=== PATIENT | male | born 1965 | race Hispanic/Latino ===

== ENCOUNTER 2017-10-04 11:30 | Emergency (ER) | payer MEDICAID, MEDICARE, OTHER ==
[2017-10-04 12:39] LABS: Basophils % (Auto) 0.3 % (0.0-1.8); Eosinophils # (Auto) 0.1 K/mm3 (0.0-0.4); Eosinophils % (Auto) 1.3 % (0.0-4.3); Hematocrit 39.7 % (35.5-45.6); Hemoglobin 13.5 gm/dl (11.8-15.2); Lymphocytes # (Auto) 1.2 K/mm3 (1.2-5.4); Lymphocytes % (Auto) 14.9 % (13.4-35.0); Mean Corpuscular HGB Conc 34 % (32-34); Mean Corpuscular Hemoglobin 32 pg (28-32); Mean Corpuscular Volume 93 fl (84-94); Monocytes # (Auto) 0.7 K/mm3 (0.0-0.8); Monocytes % (Auto) 8.5 % (0.0-7.3); Platelet Count 298 K/mm3 (140-440); Red Blood Count 4.28 M/mm3 (3.65-5.03); Red Cell Distribution Width 13.3 % (13.2-15.2)
[2017-10-04 12:54] LABS: Alanine Aminotransferase 106 units/L (7-56); Albumin 4.1 g/dL (3.9-5); BUN/Creatinine Ratio 20; Blood Urea Nitrogen 14 mg/dL (9-20); Calcium 9.3 mg/dL (8.4-10.2); Hemolysis Index 2
--- NOTE | 2017-10-04 13:42 | Emergency Department Report ---
HPI - General Chief Complaint: Altered Mental Status Time Seen by Provider: 10/04/17 13:27 - HPI HPI: 52-year-old male presents to the emergency department via police department after family called 911 as the patient allegedly was seen walking around the neighborhood naked. The patient allegedly lives with his mother and father but they are not bedside and we have not been able to get in touch with them to verify any of the story. The patient is a poor historian and therefore I am unable to get any past medical or psychiatric history. Patient is currently confused and is AAo x 1-2. ED Past Medical Hx - Past Medical History Additional medical history: unable to obtain - Surgical History Additional Surgical History: unable to obtain - Social History Smoking Status: Current Every Day Smoker Substance Use Type: Other - Medications Home Medications: Home Medications Medication Instructions Recorded Confirmed Last Taken Type No Known Home Medications [No 10/04/17 10/04/17 Unknown History Reported Home Medications] ED Review of Systems ROS: Stated complaint: PSYCH EVAL Other details as noted in HPI Comment: Unobtainable due to pts medical conditions Physical Exam - Physical Exam Vital Signs: Vital Signs 10/04/17 11:39 Temperature 99.1 F Pulse Rate 80 Respiratory 18 Rate Blood Pressure 138/98 O2 Sat by Pulse 97 Oximetry Physical Exam: GENERAL: The patient is well-developed well-nourished. HENT: Normocephalic. Atraumatic. Patient has moist mucous membranes. EYES: Extraocular motions are intact. Pupils equal reactive to light bilaterally. NECK: Supple. Trachea is midline. CHEST/LUNGS: Clear to auscultation. There is no respiratory distress noted. HEART/CARDIOVASCULAR: Regular. There is no tachycardia. There is no murmur. ABDOMEN: Abdomen is soft, nontender. Patient has normal bowel sounds. There is no abdominal distention. SKIN: Skin is warm and dry. NEURO: Patient is sleeping but is arousable with verbal and tactile stimuli. Once awake the patient is AAO [address] but not time. He says that the year is 1984 and is unable to tell me who the president is. No facial asymmetry. No pronator drift. Withdraws from painful stimuli. MUSCULOSKELETAL: There is no tenderness or deformity. There is no evidence of acute injury. ED Course Vital Signs 10/04/17 11:39 Temperature 99.1 F Pulse Rate 80 Respiratory 18 Rate Blood Pressure 138/98 O2 Sat by Pulse 97 Oximetry ED Medical Decision Making - Lab Data Result diagrams: 10/04/17 12:21 10/04/17 12:21 - Radiology Data Radiology results: report reviewed CT HEAD WITHOUT CONTRAST: HISTORY: Altered mental status. TECHNIQUE: Sequential CT images without contrast. FINDINGS: Images obtained show bilateral prominence of the sulci and ventricles. There are no abnormal intra- or extra-axial blood or fluid collections. There are no focal masses or evidence of mass effect. The dumas white matter differentiation appears within normal limits. Regions of periventricular decreased attenuation are consistent with microangiopathic ischemic disease. The posterior fossa structures including the fourth ventricle, cerebellum, and brainstem appear normal. IMPRESSION: Evidence of atrophy and microangiopathic ischemic disease. No acute intracranial process noted. Transcribed By: TTR Dictated By: LEVAR SAEED JR, MD Electronically Authenticated By: LEVAR SAEED JR, MD Signed Date/Time: 10/04/17 1409 - Medical Decision Making CT of the head does not show any bleed, shift, mass or any acute process. Labs up and mostly unremarkable and do not show any etiology of the patient's symptoms. I eventually was able to speak with the patient's father who says that he has been acting irrationally. He has been destroying his father's home. He has been disturbing other residents of the house and the father says that he is not welcome back there and that he plans to evict him. An attempt was made for the psych pointing machine operator to do an assessment on the patient but the patient either was hard to arouse or was malingering at that time. I did reevaluate him just after I was told this and I was able to arouse him with tactile stimuli. There could be a psychiatric component but as of right now the patient has altered mental status my plan is for the patient to be admitted for further evaluation and treatment. The patient has been presented to the hospitalist, Dr. Alvarez for admission or disposition. - Differential Diagnosis psychosis, CVA, TIA, metabolic encephalopathy Critical Care Time: No Critical care attestation.: If time is entered above; I have spent that time in minutes in the direct care of this critically ill patient, excluding procedure time. ED Disposition Clinical Impression: Altered mental status Qualifiers: Altered mental status type: unspecified Qualified Code(s): R41.82 - Altered mental status, unspecified Disposition: DC-09 OP ADMIT IP TO THIS HOSP Is pt being admited?: Yes Condition: Stable Referrals: PRIMARY CARE,MD [Primary Care Provider] - 3-5 Days Time of Disposition: 20:11
--- NOTE | 2017-10-04 14:18 | Cat Scan Report ---
CT HEAD WITHOUT CONTRAST: HISTORY: Altered mental status. TECHNIQUE: Sequential CT images without contrast. FINDINGS: Images obtained show bilateral prominence of the sulci and ventricles. There are no abnormal intra- or extra-axial blood or fluid collections. There are no focal masses or evidence of mass effect. The dumas white matter differentiation appears within normal limits. Regions of periventricular decreased attenuation are consistent with microangiopathic ischemic disease. The posterior fossa structures including the fourth ventricle, cerebellum, and brainstem appear normal. IMPRESSION: Evidence of atrophy and microangiopathic ischemic disease. No acute intracranial process noted.
--- NOTE | 2017-10-04 18:03 | Event Note ---
Date: 10/04/17 Patient seen and evaluated Dementia Transaminitis Stable for discharge No ETOH Patient to get detox at [facility]
[2017-10-05 09:03] VITALS: BP 110/74
== END 2017-10-05 08:35 | disposition home or self-care (01) ==
LOC: ED 11:30
DX: R41.82 Altered mental status, unspecified (principal); F17.200 Nicotine dependence, unspecified, uncomplicated
CPT/HCPCS: 36415; 70450; 80053; 82140; 82962; 84443; 85025; 99285; G0480; 80320

== ENCOUNTER 2017-11-29 22:52 | Inpatient (IN) | payer OTHER ==
[~2017-11-29 22:52] MED LIST: KETALAR IV ONE
[2017-11-29] MEDS ORDERED: KETAMINE HCL IV ONE (23:06)
[2017-11-29] MEDS ORDERED: ZOFRAN IV ONE (23:20)
[2017-11-29] MEDS ORDERED: NACL 0.9% 1000 ML IV ONE (23:21)
[2017-11-29] MEDS ORDERED: ARTIFICIAL TEARS OPHTH OINT OU PRN (23:25)
[2017-11-29] MEDS ORDERED: VASELINE LIP THERAPY TP PRN (23:25)
--- NOTE | 2017-11-29 23:30 | Emergency Department Report ---
ED General Adult HPI - General Chief complaint: Altered Mental Status Stated complaint: POSSIBLE OD Time Seen by Provider: 11/29/17 23:21 Source: EMS (ems notes not available at time of chart dictation), RN notes reviewed Mode of arrival: Ambulatory Limitations: Altered Mental Status, Physical Limitation - History of Present Illness Initial comments: This is a 52-year-old male who is unknown to this provider who is brought to the hospital by EMS for possible narcotic overdose. Patient is found down at home, for uncertain duration of time, via uncertain mechanism with narcotic paraphernalia around him. EMS reported given 4 mg of Narcan without change in clinical response. Upon arrival to the ER, the patient is laying on his back, has been vomiting, not protecting his airway, and is saturating at 86, 87% on 2-3 L of nasal cannula. No additional history is available at this time. -: unknown Consistency: constant Improves with: none Worsens with: none Associated Symptoms: confusion, weakness - Related Data Home Medications Medication Instructions Recorded Confirmed Last Taken No Known Home Medications [No 10/04/17 10/04/17 Unknown Reported Home Medications] Allergies Allergy/AdvReac Type Severity Reaction Status Date / Time codeine Allergy Itching Verified 10/04/17 11:46 ED Review of Systems ROS: Stated complaint: POSSIBLE OD Other details as noted in HPI Comment: Unobtainable due to pts medical conditions ED Past Medical Hx - Past Medical History Additional medical history: unable to obtain - Surgical History Additional Surgical History: unable to obtain - Social History Smoking Status: Current Every Day Smoker Substance Use Type: Other - Medications Home Medications: Home Medications Medication Instructions Recorded Confirmed Last Taken Type No Known Home Medications [No 10/04/17 10/04/17 Unknown History Reported Home Medications] ED Physical Exam - General Limitations: Altered Mental Status, Physical Limitation General appearance: obtunded - Head Head exam: Present: atraumatic, normocephalic - Eye Eye exam: Present: normal appearance, PERRL - ENT ENT exam: Present: normal exam, mucous membranes moist, normal external ear exam , other (patient has copious oral secretions in the oropharynx noted prior to intubation) - Neck Neck exam: Present: normal inspection, full ROM. Absent: tenderness, meningismus - Respiratory Respiratory exam: Present: respiratory distress, rhonchi - Cardiovascular Cardiovascular Exam: Present: normal rhythm, tachycardia, normal heart sounds. Absent: systolic murmur, diastolic murmur, rubs, gallop - GI/Abdominal GI/Abdominal exam: Present: soft. Absent: distended, tenderness, rebound, rigid , pulsatile mass - Rectal Rectal exam: Present: normal inspection - exam: Present: normal inspection - Extremities Exam Extremities exam: Present: normal inspection. Absent: tenderness, pedal edema, joint swelling, calf tenderness - Back Exam Back exam: Present: normal inspection. Absent: CVA tenderness (R), CVA tenderness (L), paraspinal tenderness, vertebral tenderness - Neurological Exam Neurological exam: Present: altered - Psychiatric Psychiatric exam: Present: other (non verbal) - Skin Skin exam: Present: warm, dry, intact, normal color ED Course Vital Signs 11/29/17 11/29/17 23:07 23:25 Temperature 102 F H Pulse Rate 134 H 127 H Respiratory 18 Rate Blood Pressure 176/110 145/99 O2 Sat by Pulse 96 99 Oximetry - Reevaluation(s) Reevaluation #1: 11/30/17 01:[address] scan of the brain, cervical spine negative for acute disease - Intubation Time Out Performed: Yes Sedative: Ketamine Mg Given: 150 Paralytic: Rocuronium Mg Given: 100 Size: 3 ET Tube Size: 7.5 Tube Secured Depth (cm): 23 Tube Secured Location: teeth Tube Placement Confirmation: visualized tube passing t, equal breath sounds bilat, confirmation by capnometr Additional Comments: Patient placed on nasal cannula at 15 L/m. Head of bed is elevated to 45. Patient received bag valve mask ventilation with a peaked out at 5 cm of PEEP. He is induced with 150 mg of ketamine. Towel roll place underneath the shoulder blades to align ear to sternal notch. Direct laryngoscopy is performed, vocal cords visualized and tube was passed with one attempt with no difficulty. ED Medical Decision Making - Lab Data Result diagrams: 11/29/17 23:30 11/29/17 23:30 Vital Signs 11/29/17 11/29/17 23:07 23:25 Temperature 102 F H Pulse Rate 134 H 127 H Respiratory 18 Rate Blood Pressure 176/110 145/99 O2 Sat by Pulse 96 99 Oximetry Lab Results 11/29/17 11/29/17 11/29/17 Range/Units 23:30 23:30 23:30 WBC 7.9 (4.5-11.0) K/mm3 RBC 3.84 (3.65-5.03) M/mm3 Hgb 13.1 (11.8-15.2) gm/dl Hct 38.8 (35.5-45.6) % MCV 101 H (84-94) fl MCH 34 H (28-32) pg MCHC 34 (32-34) % RDW 18.1 H (13.2-15.2) % Plt Count 186 (140-440) K/mm3 Lymph % (Auto) 7.1 L (13.4-35.0) % [place] % (Auto) 5.0 (0.0-7.3) % Eos % (Auto) 0.1 (0.0-4.3) % Baso % (Auto) 0.1 (0.0-1.8) % Lymph # 0.6 L (1.2-5.4) K/mm3 [place] # 0.4 (0.0-0.8) K/mm3 Eos # 0.0 (0.0-0.4) K/mm3 Baso # 0.0 (0.0-0.1) K/mm3 Seg Neutrophils % 87.7 H (40.0-70.0) % Seg Neutrophils # 6.9 (1.8-7.7) K/mm3 APTT (24.2-36.6) Sec. Sodium (137-145) mmol/L Potassium (3.6-5.0) mmol/L Chloride (98-107) mmol/L Carbon Dioxide (22-30) mmol/L Anion Gap mmol/L BUN (9-20) mg/dL Creatinine (0.8-1.5) mg/dL Estimated GFR ml/min BUN/Creatinine Ratio % Glucose (75-100) mg/dL Lactic Acid 4.10 H* (0.7-2.0) mmol/L Calcium (8.4-10.2) mg/dL Total Bilirubin (0.1-1.2) mg/dL AST (5-40) units/L ALT (7-56) units/L Alkaline Phosphatase (35-129) units/L Total Creatine Kinase (55-170) units/L Troponin T (0.00-0.029) ng/mL Total Protein (6.3-8.2) g/dL Albumin (3.9-5) g/dL Albumin/Globulin Ratio % Salicylates (2.8-20.0) mg/dL Acetaminophen (10.0-30.0) ug/mL Blood Type A POSITIVE Antibody Screen Negative 11/29/17 11/29/17 11/29/17 Range/Units 23:30 23:30 23:30 WBC (4.5-11.0) K/mm3 RBC (3.65-5.03) M/mm3 Hgb (11.8-15.2) gm/dl Hct (35.5-45.6) % MCV (84-94) fl MCH (28-32) pg MCHC (32-34) % RDW (13.2-15.2) % Plt Count (140-440) K/mm3 Lymph % (Auto) (13.4-35.0) % [place] % (Auto) (0.0-7.3) % Eos % (Auto) (0.0-4.3) % Baso % (Auto) (0.0-1.8) % Lymph # (1.2-5.4) K/mm3 [place] # (0.0-0.8) K/mm3 Eos # (0.0-0.4) K/mm3 Baso # (0.0-0.1) K/mm3 Seg Neutrophils % (40.0-70.0) % Seg Neutrophils # (1.8-7.7) K/mm3 APTT 27.4 (24.2-36.6) Sec. Sodium 144 (137-145) mmol/L Potassium 4.1 (3.6-5.0) mmol/L Chloride 103.2 (98-107) mmol/L Carbon Dioxide 25 (22-30) mmol/L Anion Gap 20 mmol/L BUN 19 (9-20) mg/dL Creatinine 0.9 (0.8-1.5) mg/dL Estimated GFR > 60 ml/min BUN/Creatinine Ratio 21 % Glucose 242 H (75-100) mg/dL Lactic Acid (0.7-2.0) mmol/L Calcium 8.9 (8.4-10.2) mg/dL Total Bilirubin 1.10 (0.1-1.2) mg/dL AST 52 H (5-40) units/L ALT 64 H (7-56) units/L Alkaline Phosphatase 81 (35-129) units/L Total Creatine Kinase 99 (55-170) units/L Troponin T < 0.010 (0.00-0.029) ng/mL Total Protein 7.3 (6.3-8.2) g/dL Albumin 4.3 (3.9-5) g/dL Albumin/Globulin Ratio 1.4 % Salicylates (2.8-20.0) mg/dL Acetaminophen (10.0-30.0) ug/mL Blood Type Antibody Screen 11/29/17 11/29/17 Range/Units 23:30 23:30 WBC (4.5-11.0) K/mm3 RBC (3.65-5.03) M/mm3 Hgb (11.8-15.2) gm/dl Hct (35.5-45.6) % MCV (84-94) fl MCH (28-32) pg MCHC (32-34) % RDW (13.2-15.2) % Plt Count (140-440) K/mm3 Lymph % (Auto) (13.4-35.0) % [place] % (Auto) (0.0-7.3) % Eos % (Auto) (0.0-4.3) % Baso % (Auto) (0.0-1.8) % Lymph # (1.2-5.4) K/mm3 [place] # (0.0-0.8) K/mm3 Eos # (0.0-0.4) K/mm3 Baso # (0.0-0.1) K/mm3 Seg Neutrophils % (40.0-70.0) % Seg Neutrophils # (1.8-7.7) K/mm3 APTT (24.2-36.6) Sec. Sodium (137-145) mmol/L Potassium (3.6-5.0) mmol/L Chloride (98-107) mmol/L Carbon Dioxide (22-30) mmol/L Anion Gap mmol/L BUN (9-20) mg/dL Creatinine (0.8-1.5) mg/dL Estimated GFR ml/min BUN/Creatinine Ratio % Glucose (75-100) mg/dL Lactic Acid (0.7-2.0) mmol/L Calcium (8.4-10.2) mg/dL Total Bilirubin (0.1-1.2) mg/dL AST (5-40) units/L ALT (7-56) units/L Alkaline Phosphatase (35-129) units/L Total Creatine Kinase (55-170) units/L Troponin T (0.00-0.029) ng/mL Total Protein (6.3-8.2) g/dL Albumin (3.9-5) g/dL Albumin/Globulin Ratio % Salicylates < 0.3 L (2.8-20.0) mg/dL Acetaminophen < 5.0 L (10.0-30.0) ug/mL Blood Type Antibody Screen - Radiology Data Radiology results: report reviewed, image reviewed X-ray the chest is negative for acute disease. Left support devices in appropriate position - Medical Decision Making Differential diagnosis, including but not limited to: Overdose, suicidality, pneumonia, urinary tract infection, pneumonitis, aspiration, intracranial injury , cervical spine injury Assessment and plan: 52-year-old male with altered mental status, hypoxia, reported evidence of drug paraphernalia around him. He required mechanical intubation/ventilation. He'll be ventilated on a lung protective strategy. High suspicion for aspiration pneumonia versus pneumonitis. Meets systemic inflammatory response syndrome criteria empirically. Noncontrast CT scan of the brain is negative. EKG is pending. Serum toxicology studies unremarkable. Dr. Villa, the hospital physician accepted the patient to the medical service. Dr. Crowell of the critical care department following consultation given his intubation. Patient is placed on a 1013 given that we do not know if this was an intentional overdose or recreational overdose. The psychiatric team can follow in consultation. Critical Care Time: Yes Critical care time in (mins) excluding proc time.: 45 Critical care attestation.: If time is entered above; I have spent that time in minutes in the direct care of this critically ill patient, excluding procedure time. ED Disposition Clinical Impression: SIRS (systemic inflammatory response syndrome) Respiratory failure Qualifiers: Chronicity: unspecified Respiratory failure complication: unspecified whether with hypoxia or hypercapnia Qualified Code(s): J96.90 - Respiratory failure, unspecified, unspecified whether with hypoxia or hypercapnia Disposition: OP ADMIT IP TO THIS HOSP Is pt being admited?: Yes Does the pt Need Aspirin: No Condition: Critical Referrals: PRIMARY CARE, [Primary Care Provider] - 3-5 Days
[2017-11-29] MEDS ORDERED: FLAGYL 500 MG/100 ML 500 MG/100 ML BAG IV ONE (23:45)
[2017-11-29] MEDS ORDERED: fentaNYL DRIP Premix 2,000 MCG/100 ML BAG IV SCH (23:45)
[2017-11-29] MEDS ORDERED: NACL 0.9% 500 ML IV SCH (23:45)
--- NOTE | 2017-11-29 23:46 | XRay Report ---
FINAL REPORT PROCEDURE: XR CHEST 1V AP TECHNIQUE: Chest radiograph anteroposterior view. CPT 89824 HISTORY: ETT placement COMPARISON: No prior studies are available for comparison. FINDINGS: Heart: Normal. Mediastinum/Vessels: Normal. Lungs/Pleural space: Normal. Bony thorax: No acute osseous abnormality. Life support devices: The endotracheal tube ends 4 centimeters above the willian. IMPRESSION: There is no evidence of an acute cardiopulmonary process. The endotracheal tube ends 4 centimeters above the willian..
[2017-11-30 00:08] LABS: Basophils % (Auto) 0.1 % (0.0-1.8); Eosinophils % (Auto) 0.1 % (0.0-4.3); Hematocrit 38.8 % (35.5-45.6); Hemoglobin 13.1 gm/dl (11.8-15.2); Lymphocytes # (Auto) 0.6 K/mm3 (1.2-5.4); Lymphocytes % (Auto) 7.1 % (13.4-35.0); Mean Corpuscular HGB Conc 34 % (32-34); Mean Corpuscular Hemoglobin 34 pg (28-32); Mean Corpuscular Volume 101 fl (84-94); Monocytes # (Auto) 0.4 K/mm3 (0.0-0.8); Platelet Count 186 K/mm3 (140-440); Red Blood Count 3.84 M/mm3 (3.65-5.03); Red Cell Distribution Width 18.1 % (13.2-15.2)
[2017-11-30 00:23] LABS: Alanine Aminotransferase 64 units/L (7-56); Albumin 4.3 g/dL (3.9-5); BUN/Creatinine Ratio 21; Blood Urea Nitrogen 19 mg/dL (9-20); Calcium 8.9 mg/dL (8.4-10.2); Hemolysis Index 2
[2017-11-30] MEDS ORDERED: TYLENOL PR ONE (01:02)
--- NOTE | 2017-11-30 01:08 | Cat Scan Report ---
FINAL REPORT PROCEDURE: CT HEAD/BRAIN WO CON TECHNIQUE: Computerized tomography of the head was performed without contrast material. HISTORY: AMS COMPARISON: 08/01/2017 FINDINGS: Skull and scalp: Normal. Paranasal sinuses: Normal. Ventricles and subarachnoid spaces: Normal. Cerebrum: There is no acute intracranial hemorrhage, hematoma infarction midline displacement or mass. Atrophy and periventricular deep white matter changes are noted.. Cerebellum and brainstem: No evidence of hemorrhage, acute infarction or mass. Vasculature: Normal. Comments: None. IMPRESSION: There is no evidence of an acute intracranial process. Mild atrophy and periventricular deep white matter change.
--- NOTE | 2017-11-30 01:11 | Cat Scan Report ---
FINAL REPORT PROCEDURE: CT CERVICAL SPINE WO CON TECHNIQUE: Computerized tomography of the cervical spine was performed from the skull base to T1 without contrast material. HISTORY: AMS COMPARISON: No prior studies are available for comparison. FINDINGS: The alignment of the vertebral segments is normal. No acute fracture or dislocation of the cervical spine. The heights of the vertebral bodies are maintained. There is loss of disc space height at the C3-4, C4-5 C5-6 and C6-7 levels. Moderate spur formation off the vertebral bodies is identified from the C3 through the C7 vertebral levels. Slight facet hypertrophy is identified at the C 3 4, C4-5 and C5-6 levels. The spinal canal is adequate at all levels. There is an endotracheal tube identified in the prevertebral soft tissues. IMPRESSION: There is no evidence of an acute fracture or dislocation of the cervical spine. Mild cervical spondylosis and degenerative disc changes as described..
[2017-11-30 01:17] LABS: Bacteria,Urine 1+ /HPF (Negative); Bilirubin,Urine NEG (Negative); Blood,Urine NEG (Negative); Color,Urine Yellow (Yellow); Mucus,Urine FEW /HPF; Urobilinogen,Urine < 2.0 mg/dL (<2.0)
[2017-11-30 01:27] LABS: Amphetamine Screen,Urine PRESUMPTIVE NEGATIVE; Benzodiazepines Screen,Urine PRESUMPTIVE NEGATIVE; Cannabinoid Screen,Urine PRESUMPTIVE NEGATIVE; Cocaine Screen,Urine PRESUMPTIVE NEGATIVE; Methadone Screen,Urine PRESUMPTIVE NEGATIVE
[2017-11-30 01:50] LABS: Opiate Screen,Urine PRESUMPTIVE POSITIVE
[2017-11-30] MEDS ORDERED: ATIVAN PO PRN (02:27)
[2017-11-30] MEDS ORDERED: SODIUM CHLORIDE FLUSH SYRINGE 10 ML IV PRN (02:27)
[2017-11-30] MEDS ORDERED: D50W (25GM) Syringe IV PRN (02:27)
--- NOTE | 2017-11-30 02:49 | History and Physical Report ---
History of Present Illness Date of examination: 11/30/17 Chief complaint: Patient was found unresponsive at home by EMS with heroine and alcohol paraphernalia in the room History of present illness: 52-year-old white male with unknown medical history was brought in by EMS with above complaints He was apparently vomiting in the ED and he was promptly intubated to protect airway He was also found to be hypoxic with O2 saturations in the high 80s Patient is intubated and sedated There is no family member in the room History is unavailable Past History Past Medical History: No medical history (unknown,? History of dementia, psychiatric problems and ? Alcoholism) Medications and Allergies Allergies Allergy/AdvReac Type Severity Reaction Status Date / Time codeine Allergy Itching Verified 10/04/17 11:46 Home Medications Medication Instructions Recorded Confirmed Last Taken Type No Known Home Medications [No 10/04/17 10/04/17 Unknown History Reported Home Medications] Active Meds: Active Medications Dextrose (D50w (25gm) Syringe) 50 ml IV PRN PRN PRN Reason: Hypoglycemia Heparin Sodium (Porcine) (Heparin) 5,000 unit SUB-Q Q8HR DEVENDRA Hydrophilic Ointment (Vaseline Lip Therapy) 1 applic TP Q2HR PRN PRN Reason: Dry Lips Ampicillin Sodium/Sulbactam Sodium (Unasyn/Ns 3 Gm/100 Ml) 3 gm in 100 mls @ 100 mls/hr IV Q6HR DEVENDRA; Protocol Last Admin: 11/30/17 01:58 Dose: 100 mls/hr Fentanyl Citrate (Fentanyl Drip Premix) 2,000 mcg in 100 mls @ 3.629 mls/hr IV TITR DEVENDRA; Protocol Sodium Chloride (Nacl 0.9% 1000 Ml) 1,000 mls @ 75 mls/hr IV DIRECT DEVENDRA Lorazepam (Ativan) 4 mg IV Q4HR PRN PRN Reason: Agitation Lorazepam (Ativan) 2 mg PO Q1H PRN PRN Reason: CIWA-Ar 8-15 Morphine Sulfate (Morphine) 2 mg IV Q4H PRN PRN Reason: Pain, Moderate (4-6) Multi-Ingred Cream/Lotion/Oil/Oint (Artificial Tears Ophth Oint) 1 applic OU Q4HR PRN PRN Reason: Dry Eye(s) Sodium Chloride (Nacl 0.9% 500 Ml) 1 ml IV DIRECT DEVENDRA Sodium Chloride (Sodium Chloride Flush Syringe 10 Ml) 10 ml IV BID DEVENDRA Sodium Chloride (Sodium Chloride Flush Syringe 10 Ml) 10 ml IV PRN PRN PRN Reason: LINE FLUSH Review of Systems All systems: negative (unable to perform review of systems as the patient is sedated and intubated) Exam - Constitutional Vitals: Temp Pulse Resp BP Pulse Ox 102 F H 93 H 22 147/97 100 11/29/17 23:07 11/30/17 02:15 11/30/17 02:15 11/30/17 02:15 11/30/17 02:15 General appearance: Present: no acute distress, other (sedated and intubated, appears ill looking) - EENT Eyes: Present: PERRL - Neck Neck: Present: supple. Absent: masses or JVD - Respiratory Respiratory effort: normal Respiratory: bilateral: CTA, diminished, negative: rales, rhonchi - Cardiovascular Rhythm: regular Heart Sounds: Present: S1 & S2 - Extremities Extremities: No edema - Abdominal General gastrointestinal: Present: soft, non-tender, hepatomegaly, splenomegaly Male genitourinary: Present: deferred - Rectal Rectal Exam: deferred - Integumentary Integumentary: Present: clear - Neurologic Neurologic: other (unable to evaluate as the patient is sedated) Results - Labs CBC & Chem 7: 11/29/17 23:30 11/29/17 23:30 Labs: Abnormal lab results 11/29/17 11/29/17 11/29/17 Range/Units 23:30 23:30 23:30 MCV 101 H (84-94) fl MCH 34 H (28-32) pg RDW 18.1 H (13.2-15.2) % Lymph % (Auto) 7.1 L (13.4-35.0) % Lymph # 0.6 L (1.2-5.4) K/mm3 Seg Neutrophils % 87.7 H (40.0-70.0) % POC ABG pH (7.35-7.45) POC ABG pCO2 (35-45) POC ABG pO2 (80-105) Glucose 242 H (75-100) mg/dL Lactic Acid 4.10 H* (0.7-2.0) mmol/L AST 52 H (5-40) units/L ALT 64 H (7-56) units/L Urine WBC (Auto) (0.0-6.0) /HPF Salicylates (2.8-20.0) mg/dL Acetaminophen (10.0-30.0) ug/mL 11/29/17 11/29/17 11/29/17 Range/Units 23:30 23:30 Unknown MCV (84-94) fl MCH (28-32) pg RDW (13.2-15.2) % Lymph % (Auto) (13.4-35.0) % Lymph # (1.2-5.4) K/mm3 Seg Neutrophils % (40.0-70.0) % POC ABG pH (7.35-7.45) POC ABG pCO2 (35-45) POC ABG pO2 (80-105) Glucose (75-100) mg/dL Lactic Acid (0.7-2.0) mmol/L AST (5-40) units/L ALT (7-56) units/L Urine WBC (Auto) 37.0 H (0.0-6.0) /HPF Salicylates < 0.3 L (2.8-20.0) mg/dL Acetaminophen < 5.0 L (10.0-30.0) ug/mL 11/30/17 Range/Units 01:42 MCV (84-94) fl MCH (28-32) pg RDW (13.2-15.2) % Lymph % (Auto) (13.4-35.0) % Lymph # (1.2-5.4) K/mm3 Seg Neutrophils % (40.0-70.0) % POC ABG pH 7.176 L (7.35-7.45) POC ABG pCO2 79.9 H (35-45) POC ABG pO2 243 H (80-105) Glucose (75-100) mg/dL Lactic Acid (0.7-2.0) mmol/L AST (5-40) units/L ALT (7-56) units/L Urine WBC (Auto) (0.0-6.0) /HPF Salicylates (2.8-20.0) mg/dL Acetaminophen (10.0-30.0) ug/mL Assessment and Plan - Patient Problems (1) Acute hypercapnic respiratory failure Current Visit: Yes Status: Acute Plan to address problem: Patient is intubated Admit patient to ICU Pulmonary consult with Dr. Crowell Empiric antibiotic therapy as the patient is intubated ABG results reviewed (2) Hyperglycemia Current Visit: Yes Status: Acute Plan to address problem: Unclear if patient has history of diabetes However we will start the patient on insulin sliding scale coverage for now Check A1c (3) Urinary tract infection Current Visit: Yes Status: Acute Qualifiers: Urinary tract infection type: acute cystitis Hematuria presence: without hematuria Qualified Code(s): N30.00 - Acute cystitis without hematuria Plan to address problem: Urine analysis results reviewed Blood and urine cultures obtained Will empirically treat the patient with Levaquin as the patient is also intubated (4) Altered mental status Current Visit: Yes Status: Acute Qualifiers: Altered mental status type: somnolence Qualified Code(s): R40.0 - Somnolence Plan to address problem: Baseline mental status is not known Rule out metabolic versus toxic encephalopathy May need neuro and psych evaluation once patient is extubated (5) Fever Current Visit: Yes Status: Acute Qualifiers: Encounter type: initial encounter Plan to address problem: Patient was noted to have a temperature of 102 He has UTI Blood cultures and urine cultures were obtained Patient empirically started on Levaquin IV Await culture results Tylenol for fever as needed (6) Heroin overdose Current Visit: Yes Status: Acute Qualifiers: Encounter type: initial encounter Plan to address problem: Patient is intubated at this time We'll start the patient on CIWA protocol with lorazepam for protection against drug withdrawal Patient is on 1013 He needs to get into a psychiatric facility once he is medically stable
[2017-11-30] MEDS ORDERED: ZOFRAN ONE (03:26)
[2017-11-30] MEDS: HEPARIN SUB-Q SCH ×3 (06:51→22:34)
[2017-11-30] MEDS ORDERED: UNASYN/NS 3 GM/100 ML 3 GM/100 ML BAG IV SCH ×2 (08:00)
--- NOTE | 2017-11-30 08:14 | XRay Report ---
AP CHEST: HISTORY: Followup respiratory failure Compared to 11/29/17. The endotracheal tube and nasogastric tube are in adequate position. Mild bilateral perihilar pulmonary edema or less likely infiltrates have developed since yesterday's exam. No pleural effusion or pneumothorax. Heart size remains within normal limits. IMPRESSION: Mild bilateral pulmonary edema is suspected.
[2017-11-30] MEDS: LEVAQUIN 500MG/100ML 500 MG/100 ML BAG IV SCH (09:49)
[2017-11-30] MEDS: PEPCID IV SCH ×2 (09:49→22:34)
[2017-11-30] MEDS: SODIUM CHLORIDE FLUSH SYRINGE 10 ML IV SCH ×2 (09:50→22:36)
--- NOTE | 2017-11-30 11:10 | Consultation ---
History of Present Illness - Reason for Consult Consult date: 11/30/17 Reason for consult: Mental Health Evaluation Requesting physician: CIRILO BOBO - Chief Complaint Chief complaint: "The patient is intubated" - History of Present Psychiatric Illness 52-year-old male presenting to the ER for possible narcotic overdose. He was found was narcotic paraphernalia around him per the record. Today the patient is intubated. Per the staff, the patient maybe extubated later today. Medications and Allergies Allergies Allergy/AdvReac Type Severity Reaction Status Date / Time codeine Allergy Itching Verified 10/04/17 11:46 Home Medications Medication Instructions Recorded Confirmed Last Taken Type No Known Home Medications [No 10/04/17 10/04/17 Unknown History Reported Home Medications] Active Meds: Active Medications Dextrose (D50w (25gm) Syringe) 50 ml IV PRN PRN PRN Reason: Hypoglycemia Famotidine (Pepcid) 20 mg IV BID DEVENDRA Last Admin: 11/30/17 09:49 Dose: 20 mg Heparin Sodium (Porcine) (Heparin) 5,000 unit SUB-Q Q8HR DEVENDRA Last Admin: 11/30/17 06:51 Dose: 5,000 unit Hydrophilic Ointment (Vaseline Lip Therapy) 1 applic TP Q2HR PRN PRN Reason: Dry Lips Fentanyl Citrate (Fentanyl Drip Premix) 2,000 mcg in 100 mls @ 3.629 mls/hr IV TITR DEVENDRA; Protocol Last Admin: 11/30/17 05:20 Dose: 1 mcg/kg/hr, 3.629 mls/hr Sodium Chloride (Nacl 0.9% 1000 Ml) 1,000 mls @ 75 mls/hr IV DIRECT DEVENDRA Levofloxacin/Dextrose (Levaquin 500mg/100ml) 500 mg in 100 mls @ 100 mls/hr IV Q24HR DEVENDRA; Protocol Last Admin: 11/30/17 09:49 Dose: 100 mls/hr Lorazepam (Ativan) 4 mg IV Q4HR PRN PRN Reason: Agitation Lorazepam (Ativan) 2 mg PO Q1H PRN PRN Reason: CIWA-Ar 8-15 Morphine Sulfate (Morphine) 2 mg IV Q4H PRN PRN Reason: Pain, Moderate (4-6) Multi-Ingred Cream/Lotion/Oil/Oint (Artificial Tears Ophth Oint) 1 applic OU Q4HR PRN PRN Reason: Dry Eye(s) Sodium Chloride (Nacl 0.9% 500 Ml) 1 ml IV DIRECT DEVENDRA Sodium Chloride (Sodium Chloride Flush Syringe 10 Ml) 10 ml IV BID DEVENDRA Last Admin: 11/30/17 09:50 Dose: 10 ml Sodium Chloride (Sodium Chloride Flush Syringe 10 Ml) 10 ml IV PRN PRN PRN Reason: LINE FLUSH Past psychiatric history - Past Medical History Past Medical History: other (Unabel to obtain ) Past Surgical History: Other (Unable to obtain) - past Psychiatric treatment and history psychiatric treatment history: Unable to obtain a psy hx or a fam psy hx. - Social History Social history: other (Unable to obtain) Mental Status Exam - Vital signs Last Vital Signs Temp 98.8 F 11/30/17 08:00 Pulse 76 11/30/17 09:00 Resp 18 11/30/17 09:00 BP 105/70 11/30/17 09:00 Pulse Ox 97 11/30/17 09:00 - Exam Narrative exam: The MSE could not be completed because of the patient's condition. Results Result Diagrams: 11/29/17 23:30 11/29/17 23:30 Abnormal lab results 11/29/17 11/29/17 11/29/17 Range/Units 23:30 23:30 23:30 MCV 101 H (84-94) fl MCH 34 H (28-32) pg RDW 18.1 H (13.2-15.2) % Lymph % (Auto) 7.1 L (13.4-35.0) % Lymph # 0.6 L (1.2-5.4) K/mm3 Seg Neutrophils % 87.7 H (40.0-70.0) % POC ABG pH (7.35-7.45) POC ABG pCO2 (35-45) POC ABG pO2 (80-105) Glucose 242 H (75-100) mg/dL POC Glucose (70-105) Lactic Acid 4.10 H* (0.7-2.0) mmol/L AST 52 H (5-40) units/L ALT 64 H (7-56) units/L Urine WBC (Auto) (0.0-6.0) /HPF Salicylates (2.8-20.0) mg/dL Acetaminophen (10.0-30.0) ug/mL Hepatitis C Antibody (NonReactive) 11/29/17 11/29/17 11/29/17 Range/Units 23:30 23:30 Unknown MCV (84-94) fl MCH (28-32) pg RDW (13.2-15.2) % Lymph % (Auto) (13.4-35.0) % Lymph # (1.2-5.4) K/mm3 Seg Neutrophils % (40.0-70.0) % POC ABG pH (7.35-7.45) POC ABG pCO2 (35-45) POC ABG pO2 (80-105) Glucose (75-100) mg/dL POC Glucose (70-105) Lactic Acid (0.7-2.0) mmol/L AST (5-40) units/L ALT (7-56) units/L Urine WBC (Auto) 37.0 H (0.0-6.0) /HPF Salicylates < 0.3 L (2.8-20.0) mg/dL Acetaminophen < 5.0 L (10.0-30.0) ug/mL Hepatitis C Antibody (NonReactive) 11/30/17 11/30/17 11/30/17 Range/Units 01:42 03:37 06:13 MCV (84-94) fl MCH (28-32) pg RDW (13.2-15.2) % Lymph % (Auto) (13.4-35.0) % Lymph # (1.2-5.4) K/mm3 Seg Neutrophils % (40.0-70.0) % POC ABG pH 7.176 L 7.470 H (7.35-7.45) POC ABG pCO2 79.9 H 34.5 L (35-45) POC ABG pO2 243 H 132 H (80-105) Glucose (75-100) mg/dL POC Glucose (70-105) Lactic Acid (0.7-2.0) mmol/L AST (5-40) units/L ALT (7-56) units/L Urine WBC (Auto) (0.0-6.0) /HPF Salicylates (2.8-20.0) mg/dL Acetaminophen (10.0-30.0) ug/mL Hepatitis C Antibody Reactive A (NonReactive) 11/30/17 Range/Units 06:36 MCV (84-94) fl MCH (28-32) pg RDW (13.2-15.2) % Lymph % (Auto) (13.4-35.0) % Lymph # (1.2-5.4) K/mm3 Seg Neutrophils % (40.0-70.0) % POC ABG pH (7.35-7.45) POC ABG pCO2 (35-45) POC ABG pO2 (80-105) Glucose (75-100) mg/dL POC Glucose 113 H (70-105) Lactic Acid (0.7-2.0) mmol/L AST (5-40) units/L ALT (7-56) units/L Urine WBC (Auto) (0.0-6.0) /HPF Salicylates (2.8-20.0) mg/dL Acetaminophen (10.0-30.0) ug/mL Hepatitis C Antibody (NonReactive) All other labs normal. Assessment and Plan Assessment and plan: Impression: Possible overdose per the record. The patient is intubated. Recommendation/Plan: Continue 1013 and assess patient in 24 hours.
--- NOTE | 2017-11-30 11:34 | Consultation ---
History of Present Illness Consult date: 11/30/17 Requesting physician: CIRILO BOBO Reason for consult: hypoxemia History of present illness: 52 y/o male with concern for drug overdose, admitted via the ED and intubated in the ED secondary to inability to protect airway. At somepoint, patient was placed on sedation and is currently on Fentanyl continuous infusion at 1. No family is present and patient is not able to provide history. Past History Past Medical History: other (Unabel to obtain ) Past Surgical History: Other (Unable to obtain) Social history: other (Unable to obtain) Medications and Allergies Allergies Allergy/AdvReac Type Severity Reaction Status Date / Time codeine Allergy Itching Verified 10/04/17 11:46 Home Medications Medication Instructions Recorded Confirmed Last Taken Type No Known Home Medications [No 10/04/17 10/04/17 Unknown History Reported Home Medications] Active Meds: Active Medications Dextrose (D50w (25gm) Syringe) 50 ml IV PRN PRN PRN Reason: Hypoglycemia Famotidine (Pepcid) 20 mg IV BID DEVENDRA Last Admin: 11/30/17 09:49 Dose: 20 mg Heparin Sodium (Porcine) (Heparin) 5,000 unit SUB-Q Q8HR DEVENDRA Last Admin: 11/30/17 06:51 Dose: 5,000 unit Hydrophilic Ointment (Vaseline Lip Therapy) 1 applic TP Q2HR PRN PRN Reason: Dry Lips Fentanyl Citrate (Fentanyl Drip Premix) 2,000 mcg in 100 mls @ 3.629 mls/hr IV TITR DEVENDRA; Protocol Last Titration: 11/30/17 10:00 Dose: 0 mcg/kg/hr, 0 mls/hr Sodium Chloride (Nacl 0.9% 1000 Ml) 1,000 mls @ 75 mls/hr IV DIRECT DEVENDRA Levofloxacin/Dextrose (Levaquin 500mg/100ml) 500 mg in 100 mls @ 100 mls/hr IV Q24HR DEVENDRA; Protocol Last Admin: 11/30/17 09:49 Dose: 100 mls/hr Lorazepam (Ativan) 4 mg IV Q4HR PRN PRN Reason: Agitation Lorazepam (Ativan) 2 mg PO Q1H PRN PRN Reason: CIWA-Ar 8-15 Morphine Sulfate (Morphine) 2 mg IV Q4H PRN PRN Reason: Pain, Moderate (4-6) Multi-Ingred Cream/Lotion/Oil/Oint (Artificial Tears Ophth Oint) 1 applic OU Q4HR PRN PRN Reason: Dry Eye(s) Sodium Chloride (Nacl 0.9% 500 Ml) 1 ml IV DIRECT DEVENDRA Sodium Chloride (Sodium Chloride Flush Syringe 10 Ml) 10 ml IV BID DEVENDRA Last Admin: 11/30/17 09:50 Dose: 10 ml Sodium Chloride (Sodium Chloride Flush Syringe 10 Ml) 10 ml IV PRN PRN PRN Reason: LINE FLUSH Review of Systems ROS unobtainable: due to endotracheal tube, due to mental status Physical Examination Vital signs: Vital Signs Temp Pulse Resp BP Pulse Ox 102 F H 134 H 18 176/110 96 11/29/17 23:07 11/29/17 23:07 11/29/17 23:07 11/29/17 23:07 11/29/17 23:07 General appearance: comatose (secondary to medication) Eyes: non-icteric ENT: other (orally intubated and sedated) Neck: supple Ascultation: Bilateral: rales Cardiovascular: regular rate and rhythm Gastrointestinal: soft, non-tender Integumentary: other (multiple tattoos) Musculoskeletal: no deformities unable to assess Results - Laboratory Findings CBC and BMP: 11/29/17 23:30 11/29/17 23:30 ABG POC ABG pH 7.470 (7.35-7.45) H 11/30/17 06:13 POC ABG pCO2 34.5 (35-45) L 11/30/17 06:13 POC ABG pO2 132 (80-105) H 11/30/17 06:13 POC ABG HCO3 25.1 11/30/17 06:13 POC ABG Total CO2 26 11/30/17 06:13 POC ABG O2 Sat 99 11/30/17 06:13 Abnormal lab findings: Abnormal Labs 11/29/17 11/29/17 11/29/17 23:30 23:30 23:30 MCV 101 H MCH 34 H RDW 18.1 H Lymph % (Auto) 7.1 L Lymph # 0.6 L Seg Neutrophils % 87.7 H POC ABG pH POC ABG pCO2 POC ABG pO2 Glucose 242 H POC Glucose Lactic Acid 4.10 H* AST 52 H ALT 64 H Urine WBC (Auto) Salicylates Acetaminophen Hepatitis C Antibody 11/29/17 11/29/17 11/29/17 23:30 23:30 Unknown MCV MCH RDW Lymph % (Auto) Lymph # Seg Neutrophils % POC ABG pH POC ABG pCO2 POC ABG pO2 Glucose POC Glucose Lactic Acid AST ALT Urine WBC (Auto) 37.0 H Salicylates < 0.3 L Acetaminophen < 5.0 L Hepatitis C Antibody 11/30/17 11/30/17 11/30/17 01:42 03:37 06:13 MCV MCH RDW Lymph % (Auto) Lymph # Seg Neutrophils % POC ABG pH 7.176 L 7.470 H POC ABG pCO2 79.9 H 34.5 L POC ABG pO2 243 H 132 H Glucose POC Glucose Lactic Acid AST ALT Urine WBC (Auto) Salicylates Acetaminophen Hepatitis C Antibody Reactive A 11/30/17 06:36 MCV MCH RDW Lymph % (Auto) Lymph # Seg Neutrophils % POC ABG pH POC ABG pCO2 POC ABG pO2 Glucose POC Glucose 113 H Lactic Acid AST ALT Urine WBC (Auto) Salicylates Acetaminophen Hepatitis C Antibody - Diagnostic Findings Chest x-ray: image reviewed (questionable right lower lobe infiltrate vs edema, per rads bilateral edema) Assessment and Plan 52 y/o male with acute respiratory failure thought secondary to drug overdose. 1. Stop sedation 2. Per nursing, when off sedation, patient can be agitated and "wild". May not tolerate conventional weaning methods. If the case, will extubate as soon as patient is more alert. 3. Psych evaluation once extubated CCT 31 minutes.
[2017-11-30] MEDS: ATIVAN IV PRN ×3 (13:16→23:18)
[2017-11-30] MEDS ORDERED: ZEMURON IV ONE (14:44)
[2017-11-30] MEDS ORDERED: XYLOCAINE CARDIAC IV ONE (14:44)
[2017-11-30] MEDS ORDERED: AMIDATE IV ONE (14:44)
--- NOTE | 2017-11-30 15:10 | Event Note ---
Date: 11/30/17 52 year old male was admitted this morning for the management of drug overdose. Patient was not able to take care of his airways. He was intubated and mechanical ventilation. H&P, imaging, labs, consultants recommendation were reviewed. Continue current management. The high probability of a clinically significant, sudden or life threatening deterioration of the [respiratory, neurology] system(s) required my full and direct attention, intervention and personal management. The aggregate critical care time was [31] minutes. This time is in addition to time spent performing reported procedures but includes the following: [x] Data Review and interpretation [x] Patient assessment and monitoring of vital signs [x] Documentation [x] Medication orders and management
[2017-11-30] MEDS ORDERED: KETALAR IV ONE (22:50)
[2017-12-01] MEDS: ATIVAN IV PRN ×4 (01:18→06:36)
--- NOTE | 2017-12-01 03:47 | XRay Report ---
FINAL REPORT PROCEDURE: XR CHEST 1V AP TECHNIQUE: Chest radiograph anteroposterior view. CPT 97117 HISTORY: follow up respiratory failure COMPARISON: 11/29/2017 FINDINGS: Heart: Normal. Mediastinum/Vessels: Normal. Lungs/Pleural space: There are bilateral perihilar infiltrates greater on the right. There are no effusions or pneumothoraces.. Bony thorax: No acute osseous abnormality. Life support devices: The NG tube is in the stomach.. IMPRESSION: The heart size is normal.. There are bilateral perihilar infiltrates greater on the right. There are no effusions or pneumothoraces.. The NG tube is in the stomach..
[2017-12-01] MEDS: HEPARIN SUB-Q SCH ×3 (05:27→22:39)
[2017-12-01 05:29] LABS: BUN/Creatinine Ratio 30; Blood Urea Nitrogen 21 mg/dL (9-20); Calcium 8.6 mg/dL (8.4-10.2); Hemolysis Index 0
[2017-12-01] MEDS ORDERED: ATIVAN IV PRN (09:38)
[2017-12-01] MEDS: PEPCID IV SCH ×2 (10:06→22:39)
[2017-12-01] MEDS: LEVAQUIN 500MG/100ML 500 MG/100 ML BAG IV SCH (10:06)
[2017-12-01] MEDS: SODIUM CHLORIDE FLUSH SYRINGE 10 ML IV SCH ×2 (10:07→22:39)
[2017-12-01] MEDS ORDERED: HALDOL IV SCH (12:00)
--- NOTE | 2017-12-01 12:03 | Progress Note ---
Assessment and Plan 52 y/o male with acute respiratory failure thought secondary to drug overdose. 1. Stop CIWA 2. Placed on PRN Haldol IM 3. Psych following 4. Speech eval 5. Continue 1013 until otherwise noted by Psych CCT 31 minutes. Subjective Date of service: 12/01/17 Interval history: Successful extubation on yesterday. Mental state about the same. Placed on CIWA but was a suspected heroin overdose. Objective Vital Signs - 12hr 12/01/17 12/01/17 12/01/17 00:33 01:00 02:00 Temperature 98.6 F Pulse Rate 132 H 93 H Pulse Rate [ Right Dorsalis Pedis] Respiratory 15 13 Rate Blood Pressure 133/83 137/90 O2 Sat by Pulse 96 97 Oximetry 12/01/17 12/01/17 12/01/17 03:00 04:00 05:00 Temperature Pulse Rate 87 87 91 H Pulse Rate [ Right Dorsalis Pedis] Respiratory 12 11 L 14 Rate Blood Pressure 140/91 143/89 174/116 O2 Sat by Pulse 97 99 98 Oximetry 12/01/17 12/01/17 12/01/17 06:00 07:00 07:59 Temperature Pulse Rate 95 H 95 H Pulse Rate [ Right Dorsalis Pedis] Respiratory 15 17 Rate Blood Pressure 144/93 144/96 O2 Sat by Pulse 96 97 99 Oximetry 12/01/17 08:00 Temperature 98.5 F Pulse Rate 87 Pulse Rate [ 94 H Right Dorsalis Pedis] Respiratory 13 Rate Blood Pressure 144/96 O2 Sat by Pulse 99 Oximetry Constitutional: lethargic Eyes: non-icteric Neck: supple Ascultation: Bilateral: rales Cardiovascular: regular rate and rhythm Gastrointestinal: soft, non-tender Integumentary: other (multiple tattoos) Neurologic: unable to assess CBC and BMP: 11/29/17 23:30 12/01/17 04:02 ABG, PT/INR, D-dimer: ABG POC ABG pH 7.470 (7.35-7.45) H 11/30/17 06:13 POC ABG pCO2 34.5 (35-45) L 11/30/17 06:13 POC ABG pO2 132 (80-105) H 11/30/17 06:13 POC ABG HCO3 25.1 11/30/17 06:13 POC ABG Total CO2 26 11/30/17 06:13 POC ABG O2 Sat 99 11/30/17 06:13 Abnormal lab findings: Abnormal Labs 11/29/17 11/29/17 11/29/17 23:30 23:30 23:30 MCV 101 H MCH 34 H RDW 18.1 H Lymph % (Auto) 7.1 L Lymph # 0.6 L Seg Neutrophils % 87.7 H POC ABG pH POC ABG pCO2 POC ABG pO2 Sodium Chloride BUN Creatinine Glucose 242 H POC Glucose Lactic Acid 4.10 H* AST 52 H ALT 64 H Urine WBC (Auto) Salicylates Acetaminophen Hepatitis C Antibody 11/29/17 11/29/17 11/29/17 23:30 23:30 Unknown MCV MCH RDW Lymph % (Auto) Lymph # Seg Neutrophils % POC ABG pH POC ABG pCO2 POC ABG pO2 Sodium Chloride BUN Creatinine Glucose POC Glucose Lactic Acid AST ALT Urine WBC (Auto) 37.0 H Salicylates < 0.3 L Acetaminophen < 5.0 L Hepatitis C Antibody 11/30/17 11/30/17 11/30/17 01:42 03:37 06:13 MCV MCH RDW Lymph % (Auto) Lymph # Seg Neutrophils % POC ABG pH 7.176 L 7.470 H POC ABG pCO2 79.9 H 34.5 L POC ABG pO2 243 H 132 H Sodium Chloride BUN Creatinine Glucose POC Glucose Lactic Acid AST ALT Urine WBC (Auto) Salicylates Acetaminophen Hepatitis C Antibody Reactive A 11/30/17 11/30/17 12/01/17 06:36 14:28 04:02 MCV MCH RDW Lymph % (Auto) Lymph # Seg Neutrophils % POC ABG pH POC ABG pCO2 POC ABG pO2 Sodium 146 H Chloride 107.6 H BUN 21 H Creatinine 0.7 L Glucose POC Glucose 113 H 122 H Lactic Acid AST ALT Urine WBC (Auto) Salicylates Acetaminophen Hepatitis C Antibody
--- NOTE | 2017-12-01 12:32 | Progress Note ---
Subjective - Reason for Consult Consult date: 12/01/17 Reason for consult: Psychiatry Follow-up - Chief Complaint Chief complaint: "The patient was extubated yesterday" 52-year-old male presenting to the ER for possible narcotic overdose. He was found was narcotic paraphernalia around him per the record. Today the patient is drowsy. The patient was extubated yesterday. Per his assigned nurse, the patient was agitated so PRN Ativan was given. Mental Status Exam - Vital signs Last Vital Signs Temp 99.9 F H 12/01/17 12:00 Pulse 94 H 12/01/17 08:00 Resp 13 12/01/17 08:00 BP 144/96 12/01/17 08:00 Pulse Ox 99 12/01/17 08:00 - Exam Narrative exam: The MSE could not be completed because of the patient's condition. Assessment and Plan Impression: Possible overdose per the record. The patient is drowsy. He was given PRN Ativan prior to my arrival to his room. The patient is in restraints. Recommendation/Plan: Continue 1013, gather collateral information, and assess patient in 24 hours. Start Haldol 5 mg IM Q6hrs PRN for acute agitation.
[2017-12-01] MEDS: NACL 0.9% 1000 ML 1,000 ML IV SCH (14:12)
[2017-12-01] MEDS: HALDOL IM PRN ×2 (14:15→23:57)
--- NOTE | 2017-12-01 15:15 | Progress Note ---
Assessment and Plan Assessment and plan: 51-year-old male was admitted to ICU for the management of drug overdose. Patient was altered at presentation and couldn't protect his airways was intubated, mechanically ventilated. Patient was extubated on 11/30. Patient was on CIWA and currently d/denys and on haldol PRN. Patient was on emperic Iv antibiotics and currently off antibiotics. No fever, WBC within normal limit. Lactic acid level normalized. Toxic encephalopathy - Likely due to opioid overdose - Patient is agitated, currently on haldol - will monitor closely Psych evaluated and recommend continue 1013 DVT prophylaxis - Heparin History Interval history: Patient was seen and evaluated this morning, patient was given Ativan before I went to the room and he was sleepy. Hospitalist Physical - Physical exam Narrative exam: patient is on venturimask 5L of oxygen. Patient was drowsy The patient appeared well nourished and normally developed. Vital signs as documented. Head exam is unremarkable. No scleral icterus . Neck is without jugular venous distension, thyromegaly, or carotid bruits. Lungs are clear to auscultation. Cardiac exam reveals regular rate and Rhythm. First and second heart sounds normal. No murmurs, rubs or gallops. Abdominal exam reveals normal bowel sounds, no masses, no organomegaly and no aortic enlargement. Extremities are nonedematous and both femoral and pedal pulses are normal. 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 - Constitutional Vitals: Temp Pulse Resp BP Pulse Ox 99.9 F H 116 H 21 149/98 95 12/01/17 12:00 12/01/17 14:00 12/01/17 14:00 12/01/17 14:00 12/01/17 14:00 General appearance: Present: no acute distress, other (sedated and intubated, appears ill looking) Results - Labs CBC & Chem 7: 11/29/17 23:30 12/01/17 04:02 Labs: Laboratory Last Values WBC 7.9 K/mm3 (4.5-11.0) 11/29/17 23:30 RBC 3.84 M/mm3 (3.65-5.03) 11/29/17 23:30 Hgb 13.1 gm/dl (11.8-15.2) 11/29/17 23:30 Hct 38.8 % (35.5-45.6) 11/29/17 23:30 MCV 101 fl (84-94) H 11/29/17 23:30 MCH 34 pg (28-32) H 11/29/17 23:30 MCHC 34 % (32-34) 11/29/17 23:30 RDW 18.1 % (13.2-15.2) H 11/29/17 23:30 Plt Count 186 K/mm3 (140-440) 11/29/17 23:30 Lymph % (Auto) 7.1 % (13.4-35.0) L 11/29/17 23:30 [place] % (Auto) 5.0 % (0.0-7.3) 11/29/17 23:30 Eos % (Auto) 0.1 % (0.0-4.3) 11/29/17 23:30 Baso % (Auto) 0.1 % (0.0-1.8) 11/29/17 23:30 Lymph # 0.6 K/mm3 (1.2-5.4) L 11/29/17 23:30 [place] # 0.4 K/mm3 (0.0-0.8) 11/29/17 23:30 Eos # 0.0 K/mm3 (0.0-0.4) 11/29/17 23:30 Baso # 0.0 K/mm3 (0.0-0.1) 11/29/17 23:30 Seg Neutrophils % 87.7 % (40.0-70.0) H 11/29/17 23:30 Seg Neutrophils # 6.9 K/mm3 (1.8-7.7) 11/29/17 23:30 APTT 27.4 Sec. (24.2-36.6) 11/29/17 23:30 POC ABG pH 7.470 (7.35-7.45) H 11/30/17 06:13 POC ABG pCO2 34.5 (35-45) L 11/30/17 06:13 POC ABG pO2 132 (80-105) H 11/30/17 06:13 POC ABG HCO3 25.1 11/30/17 06:13 POC ABG Total CO2 26 11/30/17 06:13 POC ABG O2 Sat 99 11/30/17 06:13 POC ABG Base Excess 1 11/30/17 06:13 FiO2 75 % 11/30/17 06:13 Sodium 146 mmol/L (137-145) H 12/01/17 04:02 Potassium 3.7 mmol/L (3.6-5.0) 12/01/17 04:02 Chloride 107.6 mmol/L (98-107) H 12/01/17 04:02 Carbon Dioxide 25 mmol/L (22-30) 12/01/17 04:02 Anion Gap 17 mmol/L 12/01/17 04:02 BUN 21 mg/dL (9-20) H 12/01/17 04:02 Creatinine 0.7 mg/dL (0.8-1.5) L 12/01/17 04:02 Estimated GFR > 60 ml/min 12/01/17 04:02 BUN/Creatinine Ratio 30 % 12/01/17 04:02 Glucose 85 mg/dL (75-100) 12/01/17 04:02 POC Glucose 81 (70-105) 12/01/17 10:21 Lactic Acid 1.30 mmol/L (0.7-2.0) 11/30/17 03:37 Calcium 8.6 mg/dL (8.4-10.2) 12/01/17 04:02 Total Bilirubin 1.10 mg/dL (0.1-1.2) 11/29/17 23:30 AST 52 units/L (5-40) H 11/29/17 23:30 ALT 64 units/L (7-56) H 11/29/17 23:30 Alkaline Phosphatase 81 units/L (35-129) 11/29/17 23:30 Total Creatine Kinase 99 units/L (55-170) 11/29/17 23:30 Troponin T < 0.010 ng/mL (0.00-0.029) 11/29/17 23:30 Total Protein 7.3 g/dL (6.3-8.2) 11/29/17 23:30 Albumin 4.3 g/dL (3.9-5) 11/29/17 23:30 Albumin/Globulin Ratio 1.4 % 11/29/17 23:30 Urine Color Yellow (Yellow) 11/29/17 Unknown Urine Turbidity Clear (Clear) 11/29/17 Unknown Urine pH 5.0 (5.0-7.0) 11/29/17 Unknown Ur Specific [place] 1.014 (1.003-1.030) 11/29/17 Unknown Urine Protein 100 mg/dl mg/dL (Negative) 11/29/17 Unknown Urine Glucose (UA) >=500 mg/dL (Negative) 11/29/17 Unknown Urine Ketones Neg mg/dL (Negative) 11/29/17 Unknown Urine Blood Neg (Negative) 11/29/17 Unknown Urine Nitrite Neg (Negative) 11/29/17 Unknown Urine Bilirubin Neg (Negative) 11/29/17 Unknown Urine Urobilinogen < 2.0 mg/dL (<2.0) 11/29/17 Unknown Ur Leukocyte Esterase Neg (Negative) 11/29/17 Unknown Urine WBC (Auto) 37.0 /HPF (0.0-6.0) H 11/29/17 Unknown Urine RBC (Auto) 6.0 /HPF (0.0-6.0) 11/29/17 Unknown Urine Bacteria (Auto) 1+ /HPF (Negative) 11/29/17 Unknown Urine Mucus Few /HPF 11/29/17 Unknown Salicylates < 0.3 mg/dL (2.8-20.0) L 11/29/17 23:30 Urine Opiates Screen Presumptive positive 11/29/17 Unknown Urine Methadone Screen Presumptive negative 11/29/17 Unknown Acetaminophen < 5.0 ug/mL (10.0-30.0) L 11/29/17 23:30 Ur Barbiturates Screen Presumptive negative 11/29/17 Unknown Ur Phencyclidine Scrn Presumptive negative 11/29/17 Unknown Ur Amphetamines Screen Presumptive negative 11/29/17 Unknown U Benzodiazepines Scrn Presumptive negative 11/29/17 Unknown Urine Cocaine Screen Presumptive negative 11/29/17 Unknown U Marijuana (THC) Screen Presumptive negative 11/29/17 Unknown Drugs of Abuse Note Disclamer 11/29/17 Unknown Hep Bs Antigen Non-reactive (Negative) 11/30/17 03:37 Hepatitis C Antibody Reactive (NonReactive) A 11/30/17 03:37 Blood Type A POSITIVE 11/29/17 23:30 Antibody Screen Negative 11/29/17 23:30
[2017-12-01] MEDS ORDERED: PROVENTIL IH SCH (21:15)
[2017-12-01] MEDS ORDERED: TYLENOL FEEDTUBE PRN ×2 (21:18→21:37)
[2017-12-01 22:24] LABS: Bilirubin,Urine NEG (Negative); Blood,Urine NEG (Negative); Color,Urine Yellow (Yellow); Protein,Urine <15 mg/dL mg/dL (Negative); Urobilinogen,Urine < 2.0 mg/dL (<2.0)
[2017-12-01] MEDS: APRESOLINE IV PRN (22:39)
[2017-12-02] MEDS: APRESOLINE IV PRN ×2 (04:01→13:20)
[2017-12-02 05:18] LABS: Hematocrit 37.7 % (35.5-45.6)
[2017-12-02] MEDS: HEPARIN SUB-Q SCH ×3 (07:00→22:24)
[2017-12-02] MEDS: NACL 0.9% 1000 ML 1,000 ML IV SCH (07:00)
[2017-12-02] MEDS: HALDOL IM PRN ×2 (08:20→15:29)
[2017-12-02] MEDS: PROVENTIL IH SCH ×3 (08:50→21:01)
--- NOTE | 2017-12-02 09:28 | XRay Report ---
FINAL REPORT EXAM: XR CHEST 1V AP HISTORY: follow up respiratory failure TECHNIQUE: Chest, portable semi upright PRIORS: 12/01/2017 FINDINGS: There is unchanged infiltrate in the right mid to lower lung. There is also likely additional patchy infiltrate in the right upper lobe. Aeration on the left has improved. There is no pleural effusion or pneumothorax seen. Nasogastric tube extends into the stomach. IMPRESSION: Unchanged infiltrates in the right lung. Improved aeration in the left lung.
[2017-12-02] MEDS: PEPCID IV SCH ×2 (10:59→22:22)
[2017-12-02] MEDS: SODIUM CHLORIDE FLUSH SYRINGE 10 ML IV SCH ×2 (11:00→22:23)
[2017-12-02] MEDS: MORPHINE IV PRN (11:00)
--- NOTE | 2017-12-02 13:58 | Progress Note ---
Assessment and Plan Assessment and plan: 51-year-old male was admitted to ICU for the management of drug overdose. Patient was altered at presentation and couldn't protect his airways was intubated, mechanically ventilated. Patient was extubated on 11/30. Patient was on CIWA and currently d/denys and on haldol PRN. Patient was on emperic Iv antibiotics and currently off antibiotics. No fever, WBC within normal limit. Lactic acid level normalized. Toxic encephalopathy - Likely due to opioid overdose - Patient was agitated, currently on Haldol and somnolent - will monitor closely Psych evaluated and recommend continue 1013 DVT prophylaxis - Heparin History Interval history: Patient was seen and evaluated this morning, patient was given Haldol and was somnolent. Hospitalist Physical - Physical exam Narrative exam: patient is on venturimask 5L of oxygen. Patient was drowsy The patient appeared well nourished and normally developed. Vital signs as documented. Head exam is unremarkable. No scleral icterus . Neck is without jugular venous distension, thyromegaly, or carotid bruits. Lungs are clear to auscultation. Cardiac exam reveals regular rate and Rhythm. First and second heart sounds normal. No murmurs, rubs or gallops. Abdominal exam reveals normal bowel sounds, no masses, no organomegaly and no aortic enlargement. Extremities are nonedematous and both femoral and pedal pulses are normal. 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 - Constitutional Vitals: Temp Pulse Resp BP Pulse Ox 99.8 F H 110 H 24 181/103 92 12/02/17 13:12 12/02/17 13:20 12/02/17 13:12 12/02/17 13:20 12/02/17 13:12 General appearance: Present: no acute distress, other (sedated and intubated, appears ill looking) Results - Labs CBC & Chem 7: 12/02/17 04:57 12/01/17 04:02 Labs: Laboratory Last Values WBC 7.9 K/mm3 (4.5-11.0) 11/29/17 23:30 RBC 3.84 M/mm3 (3.65-5.03) 11/29/17 23:30 Hgb 13.0 gm/dl (11.8-15.2) 12/02/17 04:57 Hct 37.7 % (35.5-45.6) 12/02/17 04:57 MCV 101 fl (84-94) H 11/29/17 23:30 MCH 34 pg (28-32) H 11/29/17 23:30 MCHC 34 % (32-34) 11/29/17 23:30 RDW 18.1 % (13.2-15.2) H 11/29/17 23:30 Plt Count 186 K/mm3 (140-440) 11/29/17 23:30 Lymph % (Auto) 7.1 % (13.4-35.0) L 11/29/17 23:30 [place] % (Auto) 5.0 % (0.0-7.3) 11/29/17 23:30 Eos % (Auto) 0.1 % (0.0-4.3) 11/29/17 23:30 Baso % (Auto) 0.1 % (0.0-1.8) 11/29/17 23:30 Lymph # 0.6 K/mm3 (1.2-5.4) L 11/29/17 23:30 [place] # 0.4 K/mm3 (0.0-0.8) 11/29/17 23:30 Eos # 0.0 K/mm3 (0.0-0.4) 11/29/17 23:30 Baso # 0.0 K/mm3 (0.0-0.1) 11/29/17 23:30 Seg Neutrophils % 87.7 % (40.0-70.0) H 11/29/17 23:30 Seg Neutrophils # 6.9 K/mm3 (1.8-7.7) 11/29/17 23:30 APTT 27.4 Sec. (24.2-36.6) 11/29/17 23:30 POC ABG pH 7.470 (7.35-7.45) H 11/30/17 06:13 POC ABG pCO2 34.5 (35-45) L 11/30/17 06:13 POC ABG pO2 132 (80-105) H 11/30/17 06:13 POC ABG HCO3 25.1 11/30/17 06:13 POC ABG Total CO2 26 11/30/17 06:13 POC ABG O2 Sat 99 11/30/17 06:13 POC ABG Base Excess 1 07/19/18 06:13 FiO2 75 % 11/30/17 06:13 Sodium 146 mmol/L (137-145) H 12/01/17 04:02 Potassium 3.7 mmol/L (3.6-5.0) 12/01/17 04:02 Chloride 107.6 mmol/L (98-107) H 12/01/17 04:02 Carbon Dioxide 25 mmol/L (22-30) 12/01/17 04:02 Anion Gap 17 mmol/L 12/01/17 04:02 BUN 21 mg/dL (9-20) H 12/01/17 04:02 Creatinine 0.7 mg/dL (0.8-1.5) L 12/01/17 04:02 Estimated GFR > 60 ml/min 12/01/17 04:02 BUN/Creatinine Ratio 30 % 12/01/17 04:02 Glucose 85 mg/dL (75-100) 12/01/17 04:02 POC Glucose 81 (70-105) 12/01/17 10:21 Lactic Acid 1.30 mmol/L (0.7-2.0) 11/30/17 03:37 Calcium 8.6 mg/dL (8.4-10.2) 12/01/17 04:02 Total Bilirubin 1.10 mg/dL (0.1-1.2) 11/29/17 23:30 AST 52 units/L (5-40) H 11/29/17 23:30 ALT 64 units/L (7-56) H 11/29/17 23:30 Alkaline Phosphatase 81 units/L (35-129) 11/29/17 23:30 Total Creatine Kinase 99 units/L (55-170) 11/29/17 23:30 Troponin T < 0.010 ng/mL (0.00-0.029) 11/29/17 23:30 Total Protein 7.3 g/dL (6.3-8.2) 11/29/17 23:30 Albumin 4.3 g/dL (3.9-5) 11/29/17 23:30 Albumin/Globulin Ratio 1.4 % 11/29/17 23:30 Urine Color Yellow (Yellow) 12/01/17 22:05 Urine Turbidity Clear (Clear) 12/01/17 22:05 Urine pH 7.0 (5.0-7.0) 12/01/17 22:05 Ur Specific [place] 1.012 (1.003-1.030) 12/01/17 22:05 Urine Protein <15 mg/dl mg/dL (Negative) 12/01/17 22:05 Urine Glucose (UA) Neg mg/dL (Negative) 12/01/17 22:05 Urine Ketones 20 mg/dL (Negative) 12/01/17 22:05 Urine Blood Neg (Negative) 12/01/17 22:05 Urine Nitrite Neg (Negative) 12/01/17 22:05 Urine Bilirubin Neg (Negative) 12/01/17 22:05 Urine Urobilinogen < 2.0 mg/dL (<2.0) 12/01/17 22:05 Ur Leukocyte Esterase Neg (Negative) 12/01/17 22:05 Urine WBC (Auto) 1.0 /HPF (0.0-6.0) 12/01/17 22:05 Urine RBC (Auto) 3.0 /HPF (0.0-6.0) 12/01/17 22:05 Urine Bacteria (Auto) 1+ /HPF (Negative) 11/29/17 Unknown Urine Mucus Few /HPF 11/29/17 Unknown Salicylates < 0.3 mg/dL (2.8-20.0) L 11/29/17 23:30 Urine Opiates Screen Presumptive positive 11/29/17 Unknown Urine Methadone Screen Presumptive negative 11/29/17 Unknown Acetaminophen < 5.0 ug/mL (10.0-30.0) L 11/29/17 23:30 Ur Barbiturates Screen Presumptive negative 11/29/17 Unknown Ur Phencyclidine Scrn Presumptive negative 11/29/17 Unknown Ur Amphetamines Screen Presumptive negative 11/29/17 Unknown U Benzodiazepines Scrn Presumptive negative 11/29/17 Unknown Urine Cocaine Screen Presumptive negative 11/29/17 Unknown U Marijuana (THC) Screen Presumptive negative 11/29/17 Unknown Drugs of Abuse Note Disclamer 11/29/17 Unknown Hep Bs Antigen Non-reactive (Negative) 11/30/17 03:37 Hepatitis C Antibody Reactive (NonReactive) A 11/30/17 03:37 Blood Type A POSITIVE 11/29/17 23:30 Antibody Screen Negative 11/29/17 23:30
--- NOTE | 2017-12-02 15:38 | Progress Note ---
Assessment and Plan 52 y/o male with acute respiratory failure thought secondary to drug overdose. 1. Wean FiO2 for sats >88% 2. Needs better BP control, at risk for flash pulmonary edema 3. Follow up Psych recs. Subjective Date of service: 12/02/17 Interval history: Successful transfer out of unit. BP elevated. Mental status is still not appropriate. Calm on Haldol Objective Vital Signs - 12hr 12/02/17 12/02/17 12/02/17 03:44 03:46 04:38 Temperature 98.4 F 98.9 F Pulse Rate 77 77 89 Pulse Rate [ Bilateral] Respiratory 20 20 20 Rate Respiratory Rate [Bilateral ] Blood Pressure 158/110 155/108 146/101 Blood Pressure [Right] O2 Sat by Pulse 97 98 93 Oximetry 12/02/17 12/02/17 12/02/17 05:19 08:50 09:10 Temperature Pulse Rate 88 Pulse Rate [ 94 H 95 H Bilateral] Respiratory 20 Rate Respiratory 18 18 Rate [Bilateral ] Blood Pressure 133/94 Blood Pressure [Right] O2 Sat by Pulse 96 Oximetry 12/02/17 12/02/17 12/02/17 09:13 09:19 10:00 Temperature Pulse Rate 88 Pulse Rate [ 94 H Bilateral] Respiratory Rate Respiratory 18 Rate [Bilateral ] Blood Pressure Blood Pressure [Right] O2 Sat by Pulse 93 Oximetry 12/02/17 12/02/17 13:12 13:20 Temperature 99.8 F H Pulse Rate 110 H 110 H Pulse Rate [ Bilateral] Respiratory 24 Rate Respiratory Rate [Bilateral ] Blood Pressure 181/103 Blood Pressure 181/123 [Right] O2 Sat by Pulse 92 Oximetry Constitutional: lethargic Eyes: non-icteric ENT: other (orally intubated and sedated) Neck: supple Ascultation: Bilateral: rales Cardiovascular: regular rate and rhythm Gastrointestinal: soft, non-tender Integumentary: other (multiple tattoos) Neurologic: unable to assess CBC and BMP: 12/02/17 04:57 12/01/17 04:02 ABG, PT/INR, D-dimer: ABG POC ABG pH 7.470 (7.35-7.45) H 11/30/17 06:13 POC ABG pCO2 34.5 (35-45) L 11/30/17 06:13 POC ABG pO2 132 (80-105) H 11/30/17 06:13 POC ABG HCO3 25.1 11/30/17 06:13 POC ABG Total CO2 26 11/30/17 06:13 POC ABG O2 Sat 99 11/30/17 06:13 Abnormal lab findings: Abnormal Labs 11/29/17 11/29/17 11/29/17 23:30 23:30 23:30 MCV 101 H MCH 34 H RDW 18.1 H Lymph % (Auto) 7.1 L Lymph # 0.6 L Seg Neutrophils % 87.7 H POC ABG pH POC ABG pCO2 POC ABG pO2 Sodium Chloride BUN Creatinine Glucose 242 H POC Glucose Lactic Acid 4.10 H* AST 52 H ALT 64 H Urine WBC (Auto) Salicylates Acetaminophen Hepatitis C Antibody 11/29/17 11/29/17 11/29/17 23:30 23:30 Unknown MCV MCH RDW Lymph % (Auto) Lymph # Seg Neutrophils % POC ABG pH POC ABG pCO2 POC ABG pO2 Sodium Chloride BUN Creatinine Glucose POC Glucose Lactic Acid AST ALT Urine WBC (Auto) 37.0 H Salicylates < 0.3 L Acetaminophen < 5.0 L Hepatitis C Antibody 11/30/17 11/30/17 11/30/17 01:42 03:37 06:13 MCV MCH RDW Lymph % (Auto) Lymph # Seg Neutrophils % POC ABG pH 7.176 L 7.470 H POC ABG pCO2 79.9 H 34.5 L POC ABG pO2 243 H 132 H Sodium Chloride BUN Creatinine Glucose POC Glucose Lactic Acid AST ALT Urine WBC (Auto) Salicylates Acetaminophen Hepatitis C Antibody Reactive A 11/30/17 11/30/17 12/01/17 06:36 14:28 04:02 MCV MCH RDW Lymph % (Auto) Lymph # Seg Neutrophils % POC ABG pH POC ABG pCO2 POC ABG pO2 Sodium 146 H Chloride 107.6 H BUN 21 H Creatinine 0.7 L Glucose POC Glucose 113 H 122 H Lactic Acid AST ALT Urine WBC (Auto) Salicylates Acetaminophen Hepatitis C Antibody
[2017-12-03] MEDS: NACL 0.9% 1000 ML 1,000 ML IV SCH (03:48)
[2017-12-03] MEDS: HEPARIN SUB-Q SCH ×3 (05:41→21:30)
[2017-12-03 07:17] LABS: Basophils % (Auto) 0.2 % (0.0-1.8); Eosinophils % (Auto) 0.3 % (0.0-4.3); Hematocrit 37.8 % (35.5-45.6); Hemoglobin 13.1 gm/dl (11.8-15.2); Lymphocytes # (Auto) 1.1 K/mm3 (1.2-5.4); Lymphocytes % (Auto) 11.2 % (13.4-35.0); Mean Corpuscular HGB Conc 35 % (32-34); Mean Corpuscular Hemoglobin 34 pg (28-32); Mean Corpuscular Volume 97 fl (84-94); Monocytes # (Auto) 0.8 K/mm3 (0.0-0.8); Monocytes % (Auto) 8.5 % (0.0-7.3); Platelet Count 208 K/mm3 (140-440); Red Cell Distribution Width 16.6 % (13.2-15.2)
[2017-12-03 07:34] LABS: BUN/Creatinine Ratio 40; Blood Urea Nitrogen 20 mg/dL (9-20); Calcium 8.5 mg/dL (8.4-10.2); Hemolysis Index 2
[2017-12-03] MEDS ORDERED: POTASSIUM CHLORIDE FEEDTUBE NR (08:03)
[2017-12-03] MEDS ORDERED: K-DUR PO NR (08:21)
--- NOTE | 2017-12-03 09:02 | XRay Report ---
FINAL REPORT EXAM: XR CHEST 1V AP HISTORY: follow up respiratory failure TECHNIQUE: Chest, AP PRIORS: 12/02/2017 FINDINGS: The heart size is normal. Mediastinal contours are normal. Pulmonary vasculature is not congested. There are improving right lung infiltrates. Some persistent opacity seen in the lower right lung. There are no pleural effusion seen. There is no evidence of pneumothorax. IMPRESSION: Improving infiltrates.
[2017-12-03] MEDS: SODIUM CHLORIDE FLUSH SYRINGE 10 ML IV SCH ×2 (10:00→21:32)
[2017-12-03] MEDS ORDERED: POTASSIUM CHLORIDE FEEDTUBE ONE (10:00)
[2017-12-03] MEDS: PEPCID IV SCH ×2 (10:20→21:30)
[2017-12-03] MEDS: PROVENTIL IH SCH ×3 (10:25→20:28)
--- NOTE | 2017-12-03 11:49 | Progress Note ---
Assessment and Plan 52 y/o male with acute respiratory failure thought secondary to drug overdose. 1. Oxygen weaned to off with good sats. 2. Needs better BP control, at risk for flash pulmonary edema, cannot find any BP's for this am 3. Follow up Psych recs. 4. Will sign off. Subjective Date of service: 12/03/17 Interval history: WEaned to room air. Stable. No acute events. Objective Vital Signs - 12hr 12/03/17 12/03/17 12/03/17 10:20 10:42 10:44 Pulse Rate [ 85 85 Bilateral] Respiratory 20 20 Rate [Bilateral ] O2 Sat by Pulse 95 Oximetry Constitutional: lethargic Eyes: non-icteric ENT: other (orally intubated and sedated) Neck: supple Ascultation: Bilateral: rales Cardiovascular: regular rate and rhythm Gastrointestinal: soft, non-tender Integumentary: other (multiple tattoos) Neurologic: unable to assess CBC and BMP: 12/03/17 06:10 12/03/17 06:10 ABG, PT/INR, D-dimer: ABG POC ABG pH 7.470 (7.35-7.45) H 11/30/17 06:13 POC ABG pCO2 34.5 (35-45) L 11/30/17 06:13 POC ABG pO2 132 (80-105) H 11/30/17 06:13 POC ABG HCO3 25.1 11/30/17 06:13 POC ABG Total CO2 26 11/30/17 06:13 POC ABG O2 Sat 99 11/30/17 06:13 Abnormal lab findings: Abnormal Labs 11/29/17 11/29/17 11/29/17 23:30 23:30 23:30 MCV 101 H MCH 34 H MCHC RDW 18.1 H Lymph % (Auto) 7.1 L [place] % (Auto) Lymph # 0.6 L Seg Neutrophils % 87.7 H Seg Neutrophils # POC ABG pH POC ABG pCO2 POC ABG pO2 Sodium Potassium Chloride BUN Creatinine Glucose 242 H POC Glucose Lactic Acid 4.10 H* AST 52 H ALT 64 H Urine WBC (Auto) Salicylates Acetaminophen Hepatitis C Antibody 11/29/17 11/29/17 11/29/17 23:30 23:30 Unknown MCV MCH MCHC RDW Lymph % (Auto) [place] % (Auto) Lymph # Seg Neutrophils % Seg Neutrophils # POC ABG pH POC ABG pCO2 POC ABG pO2 Sodium Potassium Chloride BUN Creatinine Glucose POC Glucose Lactic Acid AST ALT Urine WBC (Auto) 37.0 H Salicylates < 0.3 L Acetaminophen < 5.0 L Hepatitis C Antibody 11/30/17 11/30/17 11/30/17 01:42 03:37 06:13 MCV MCH MCHC RDW Lymph % (Auto) [place] % (Auto) Lymph # Seg Neutrophils % Seg Neutrophils # POC ABG pH 7.176 L 7.470 H POC ABG pCO2 79.9 H 34.5 L POC ABG pO2 243 H 132 H Sodium Potassium Chloride BUN Creatinine Glucose POC Glucose Lactic Acid AST ALT Urine WBC (Auto) Salicylates Acetaminophen Hepatitis C Antibody Reactive A 11/30/17 11/30/17 12/01/17 06:36 14:28 04:02 MCV MCH MCHC RDW Lymph % (Auto) [place] % (Auto) Lymph # Seg Neutrophils % Seg Neutrophils # POC ABG pH POC ABG pCO2 POC ABG pO2 Sodium 146 H Potassium Chloride 107.6 H BUN 21 H Creatinine 0.7 L Glucose POC Glucose 113 H 122 H Lactic Acid AST ALT Urine WBC (Auto) Salicylates Acetaminophen Hepatitis C Antibody 12/03/17 12/03/17 06:10 06:10 MCV 97 H MCH 34 H MCHC 35 H RDW 16.6 H Lymph % (Auto) 11.2 L [place] % (Auto) 8.5 H Lymph # 1.1 L Seg Neutrophils % 79.8 H Seg Neutrophils # 7.9 H POC ABG pH POC ABG pCO2 POC ABG pO2 Sodium 146 H Potassium 2.7 L* D Chloride BUN Creatinine 0.5 L Glucose 70 L POC Glucose Lactic Acid AST ALT Urine WBC (Auto) Salicylates Acetaminophen Hepatitis C Antibody
--- NOTE | 2017-12-03 12:27 | Progress Note ---
Subjective - Reason for Consult Consult date: 12/03/17 Reason for consult: Psychiatry Follow-up - Chief Complaint Chief complaint: "I made a bad choice" 52-year-old male presenting to the ER for possible narcotic overdose. Today the patient is calm and cooperative during the assessment. He stated having an opioid addiction. He stated heroin is his drug of choice. He stated that he took 7 Lortab pills prior to being found unresponsive because he was experiencing "severe pain." He stated taking opioids for generalized pain, mostly for his back. He denies that he was trying to kill himself when he took the Lortab pills. He admitted that his actions was unsafe. He stated being "on the edge" lately. Also, he acknowledged being sad and hopeless reference issues he is having with his father that he prefer not to discuss at this time. He stated poor sleep recently and rate his depression/anxiety 6/10, with 10 being the worse. He denies SI/HI's and AVH's. He denies any manic episode in the past. He denies a poor appetite. He denies recreational dug use and alcohol consumption (etoh). Mental Status Exam - Vital signs Last Vital Signs Temp 98.6 F 12/02/17 18:39 Pulse 85 12/03/17 10:44 Resp 20 12/03/17 10:44 BP 136/87 12/02/17 18:39 Pulse Ox 95 12/03/17 10:42 - Exam Narrative exam: MSE: Appearance: calm, cooperative Behavior: regular eye contact Speech: regular rate and tone Mood: "okay" Affect: congruent to mood Thought Process: circumstantial Thought Content: denies SI/HI's and AVH's Motor Activity: sitting up in bed Cognition: A/O x 3 Insight: variable Judgment: variable Assessment and Plan Impression: MDD. Opioid Use DO. Unspecified Anxiety DO. Today the patient is calm and cooperative during the assessment. Recommendation/Plan: Continue 1013 and reassess patient daily to determine proper dispo once medically clear. Start Remeron 15 mg PO HS for depression/ anxiety and Vistaril 25 mg PO BID for anxiety. Recommend no benzos or narcotics at this time if possible. Recommend Tylenol or a NSAID for pain management.
--- NOTE | 2017-12-03 12:29 | Progress Note ---
Assessment and Plan Assessment and plan: 51-year-old male was admitted to ICU for the management of drug overdose. Patient was altered at presentation and couldn't protect his airways was intubated, mechanically ventilated. Patient was extubated on 11/30. Patient was on CIWA and currently d/denys and on haldol PRN. Patient was on emperic Iv antibiotics and currently off antibiotics. No fever, WBC within normal limit. Lactic acid level normalized. Toxic encephalopathy - Resolved - Psych evaluated and recommend continue 1013 Hypokalemia - repleted - Will chek postassium Physical therapy evaluation DVT prophylaxis - Heparin Disposition -possible discharged tomorrow History Interval history: Patient was seen and evaluated this morning, patient was alert and oriented x2. Hospitalist Physical - Physical exam Narrative exam: patient is not in cardiopulmonary distress The patient appeared well nourished and normally developed. Vital signs as documented. Head exam is unremarkable. No scleral icterus . Neck is without jugular venous distension, thyromegaly, or carotid bruits. Lungs are clear to auscultation. Cardiac exam reveals regular rate and Rhythm. Abdominal exam reveals normal bowel sounds, no masses, no organomegaly and no aortic enlargement. Extremities are nonedematous and both femoral and pedal pulses are normal. RESEARCH BIOSTATISTICIAN: Alert and oriented. - Constitutional Vitals: Temp Pulse Resp BP Pulse Ox 98.6 F 85 20 136/87 95 12/02/17 18:39 12/03/17 10:44 12/03/17 10:44 12/02/17 18:39 12/03/17 10:42 General appearance: Present: no acute distress, other (sedated and intubated, appears ill looking) Results - Labs CBC & Chem 7: 12/03/17 06:10 12/03/17 06:10 Labs: Laboratory Last Values WBC 9.9 K/mm3 (4.5-11.0) 12/03/17 06:10 RBC 3.90 M/mm3 (3.65-5.03) 12/03/17 06:10 Hgb 13.1 gm/dl (11.8-15.2) 12/03/17 06:10 Hct 37.8 % (35.5-45.6) 12/03/17 06:10 MCV 97 fl (84-94) H 12/03/17 06:10 MCH 34 pg (28-32) H 12/03/17 06:10 MCHC 35 % (32-34) H 12/03/17 06:10 RDW 16.6 % (13.2-15.2) H 12/03/17 06:10 Plt Count 208 K/mm3 (140-440) 12/03/17 06:10 Lymph % (Auto) 11.2 % (13.4-35.0) L 12/03/17 06:10 [place] % (Auto) 8.5 % (0.0-7.3) H 12/03/17 06:10 Eos % (Auto) 0.3 % (0.0-4.3) 12/03/17 06:10 Baso % (Auto) 0.2 % (0.0-1.8) 12/03/17 06:10 Lymph # 1.1 K/mm3 (1.2-5.4) L 12/03/17 06:10 [place] # 0.8 K/mm3 (0.0-0.8) 12/03/17 06:10 Eos # 0.0 K/mm3 (0.0-0.4) 12/03/17 06:10 Baso # 0.0 K/mm3 (0.0-0.1) 12/03/17 06:10 Seg Neutrophils % 79.8 % (40.0-70.0) H 12/03/17 06:10 Seg Neutrophils # 7.9 K/mm3 (1.8-7.7) H 12/03/17 06:10 APTT 27.4 Sec. (24.2-36.6) 11/29/17 23:30 POC ABG pH 7.470 (7.35-7.45) H 11/30/17 06:13 POC ABG pCO2 34.5 (35-45) L 11/30/17 06:13 POC ABG pO2 132 (80-105) H 11/30/17 06:13 POC ABG HCO3 25.1 11/30/17 06:13 POC ABG Total CO2 26 11/30/17 06:13 POC ABG O2 Sat 99 11/30/17 06:13 POC ABG Base Excess 1 11/30/17 06:13 FiO2 75 % 11/30/17 06:13 Sodium 146 mmol/L (137-145) H 12/03/17 06:10 Potassium 2.7 mmol/L (3.6-5.0) L* D 12/03/17 06:10 Chloride 106.7 mmol/L (98-107) 12/03/17 06:10 Carbon Dioxide 23 mmol/L (22-30) 12/03/17 06:10 Anion Gap 19 mmol/L 12/03/17 06:10 BUN 20 mg/dL (9-20) 12/03/17 06:10 Creatinine 0.5 mg/dL (0.8-1.5) L 12/03/17 06:10 Estimated GFR > 60 ml/min 12/03/17 06:10 BUN/Creatinine Ratio 40 % 12/03/17 06:10 Glucose 70 mg/dL (75-100) L 12/03/17 06:10 POC Glucose 83 (70-105) 12/02/17 21:50 Lactic Acid 1.30 mmol/L (0.7-2.0) 11/30/17 03:37 Calcium 8.5 mg/dL (8.4-10.2) 12/03/17 06:10 Total Bilirubin 1.10 mg/dL (0.1-1.2) 11/29/17 23:30 AST 52 units/L (5-40) H 11/29/17 23:30 ALT 64 units/L (7-56) H 11/29/17 23:30 Alkaline Phosphatase 81 units/L (35-129) 11/29/17 23:30 Total Creatine Kinase 99 units/L (55-170) 11/29/17 23:30 Troponin T < 0.010 ng/mL (0.00-0.029) 11/29/17 23:30 Total Protein 7.3 g/dL (6.3-8.2) 11/29/17 23:30 Albumin 4.3 g/dL (3.9-5) 11/29/17 23:30 Albumin/Globulin Ratio 1.4 % 11/29/17 23:30 Urine Color Yellow (Yellow) 12/01/17 22:05 Urine Turbidity Clear (Clear) 12/01/17 22:05 Urine pH 7.0 (5.0-7.0) 12/01/17 22:05 Ur Specific [place] 1.012 (1.003-1.030) 12/01/17 22:05 Urine Protein <15 mg/dl mg/dL (Negative) 12/01/17 22:05 Urine Glucose (UA) Neg mg/dL (Negative) 12/01/17 22:05 Urine Ketones 20 mg/dL (Negative) 12/01/17 22:05 Urine Blood Neg (Negative) 12/01/17 22:05 Urine Nitrite Neg (Negative) 12/01/17 22:05 Urine Bilirubin Neg (Negative) 12/01/17 22:05 Urine Urobilinogen < 2.0 mg/dL (<2.0) 12/01/17 22:05 Ur Leukocyte Esterase Neg (Negative) 12/01/17 22:05 Urine WBC (Auto) 1.0 /HPF (0.0-6.0) 12/01/17 22:05 Urine RBC (Auto) 3.0 /HPF (0.0-6.0) 12/01/17 22:05 Urine Bacteria (Auto) 1+ /HPF (Negative) 11/29/17 Unknown Urine Mucus Few /HPF 11/29/17 Unknown Salicylates < 0.3 mg/dL (2.8-20.0) L 11/29/17 23:30 Urine Opiates Screen Presumptive positive 11/29/17 Unknown Urine Methadone Screen Presumptive negative 11/29/17 Unknown Acetaminophen < 5.0 ug/mL (10.0-30.0) L 11/29/17 23:30 Ur Barbiturates Screen Presumptive negative 11/29/17 Unknown Ur Phencyclidine Scrn Presumptive negative 11/29/17 Unknown Ur Amphetamines Screen Presumptive negative 11/29/17 Unknown U Benzodiazepines Scrn Presumptive negative 11/29/17 Unknown Urine Cocaine Screen Presumptive negative 11/29/17 Unknown U Marijuana (THC) Screen Presumptive negative 11/29/17 Unknown Drugs of Abuse Note Disclamer 11/29/17 Unknown Hep Bs Antigen Non-reactive (Negative) 11/30/17 03:37 Hepatitis C Antibody Reactive (NonReactive) A 11/30/17 03:37 Blood Type A POSITIVE 11/29/17 23:30 Antibody Screen Negative 11/29/17 23:30 Hypokalemia
[2017-12-03] MEDS: VISTARIL PO SCH ×2 (14:53→21:30)
[2017-12-03] MEDS: ROBITUSSIN PO PRN (21:39)
[2017-12-03] MEDS ORDERED: REMERON PO SCH (22:00)
[2017-12-04] MEDS: APRESOLINE IV PRN (00:40)
[2017-12-04] MEDS: MORPHINE IV PRN ×2 (00:41→05:32)
[2017-12-04] MEDS: ROBITUSSIN PO PRN (03:03)
[2017-12-04] MEDS: HEPARIN SUB-Q SCH ×2 (05:33→14:27)
[2017-12-04] MEDS: PROVENTIL IH SCH ×2 (07:39→13:27)
[2017-12-04 07:47] LABS: BUN/Creatinine Ratio 20; Blood Urea Nitrogen 8 mg/dL (9-20); Calcium 8.4 mg/dL (8.4-10.2); Hemolysis Index 9
--- NOTE | 2017-12-04 08:21 | XRay Report ---
AP CHEST: HISTORY: Followup respiratory failure AP view of the chest demonstrates a normal mediastinal and cardiac contour with clear lungs and normal bony and soft tissue structures. IMPRESSION: Patchy infiltrates or pulmonary congestion have resolved since previous exams. Unremarkable AP chest.
[2017-12-04] MEDS ORDERED: K-DUR PO ONE ×3 (09:00→17:10)
[2017-12-04] MEDS: VISTARIL PO SCH (10:00)
[2017-12-04] MEDS: PEPCID IV SCH (10:00)
[2017-12-04] MEDS: SODIUM CHLORIDE FLUSH SYRINGE 10 ML IV SCH (10:01)
[2017-12-04 11:55] VITALS: BP 122/95
--- NOTE | 2017-12-04 13:19 | Progress Note ---
Subjective - Reason for Consult Consult date: 12/04/17 Reason for consult: Psychiatry Follow-up - Chief Complaint Chief complaint: "I have learned my lesson" 52-year-old male presenting to the ER for possible narcotic overdose. Today the patient is calm and cooperative during the assessment. He stated that he took " a couple Lortab pills" and used a "little heroin" prior to being found unresponsive at his home. He stated, "I want to correct what I told you yesterday." Per collateral information from his father Mr Frankie Lorenzo, who was at the bedside, he stated that he did find his son on the floor and called 911. He stated that he did not see any "drugs" around his son's body. He did state that his son has a "drug problem" and need rehab services. He stated that he does not believe that his son tried to kill himself. He denies any previous suicide attempts by his son. He stated that his son can return home once discharged. He stated being the support system for his son. The patient denies SI/HI's and AVH' s. He stated that he slept well last night. He stated that he plan to discuss the issues he is having with his father so they can have a better relationship. Mental Status Exam - Vital signs Last Vital Signs Temp 98.5 F 12/04/17 11:47 Pulse 80 12/04/17 11:47 Resp 22 12/04/17 11:47 BP 122/95 12/04/17 11:47 Pulse Ox 97 12/04/17 11:47 - Exam Narrative exam: MSE: Appearance: calm, cooperative Behavior: regular eye contact Speech: regular rate and tone Mood: "okay" Affect: congruent to mood Thought Process: linear Thought Content: denies SI/HI's and AVH's Motor Activity: sitting up in bed Cognition: A/O x 3 Insight: appropriate Judgment: appropriate Assessment and Plan Impression: MDD. Opioid Use DO. Unspecified Anxiety DO. Today the patient is calm and cooperative during the assessment. The patient denies with opioids withdrawals symptoms. Unintentional overdose. The patient is no threat to self. I. This screening and assessment is based on information collected from the following sources: II. SUICIDE RISK SCREENING (within last 30 days): A.) Suicidal thoughts/behaviors: No, the patient denies trying to kill himself SUICIDE RISK ASSESSMENT III. FACTORS THAT INCREASE RISK: A.) Demographic and Substance Use Factors: Yes (Opioids) B.) Current/Recent Factors (within past 3 months): Psychosocial/Environmental Factors: Opioid Use DO Physical Illness: Generalized Pain Cognitive/Psychological Factors: None C.) Historical Factors: None D.) Diagnostic/Symptom/Treatment Factors: None E.) Acute Risk Factor Severity (DESC; MILD/MOD/SEVERE): Mild Other factors for this individual that increase risk: None IV. FACTORS THAT DECREASE RISK: Resilience/Protective Factors: Patient want to stop using opioids Other factors for this individual that decrease risk: Patient denies a desire to harm self V. Clinician's Formulation of Risk and Determination of level of Care: This is a 52-year-old white male who was found unresponsive by his father and 911 was called. The patient stated that he took some Lortabs pills and used heroin prior to being found unresponsive. He stated that he was getting "high." He stated that his actions was not safe. He acknowledged that he should have not ingested the opioids. He stated that he will follow up with outpatient psy/ rehab services once discharged. Since being hospitalized the patient has consistently denied the desire to harm himself. Additionally, he has become insightful about how to better address his current issues. The patient is not impaired by substance. He is able to take care of his ADLs and is not at imminent risk of harm to self or others. Consequently, it is the opinion of the treatment team that the patient is at low risk of suicide and does not meet criteria to continue an involuntary psychiatric hold. Estimation of Imminent Risk: Low due to the above explanation. Determination of Level of Care based on Suicide Risk: Outpatient follow-up. Narrative description of clinical reasoning. Given the fact that the patient is willing to engage in outpatient/rehab services care and has a supportive network (mother/father), it is reasonable to expect that the patient will seek services. Furthermore, the patient appears future oriented and denies that his intention was to end his life. At this current time, he is not impulsive and does not have any risk factors to increase the likelihood of impulsive behavior. Therefore, it is reasonable to expect that the patient will engage in outpatient/rehab services which will reduce further unsafe behaviors. . Plan and Interventions based on Suicide Risk: This patient will likely be stepped down to an outpatient mental health center in the community upon discharge and follow-up within 7 days of his discharge from the hospital. VII. Discharge/After Hours Support Plan: Patient can return back to the ER, call 911 or crisis line if symptoms of depression, anxiety, suicidality return. Recommendation/Plan: Rescind 1013. Continue Remeron 15 mg PO HS for depression/ anxiety and Vistaril 25 mg PO BID for anxiety. The patient can follow up at [facility] for outpatient psy/rehab services.
--- NOTE | 2017-12-04 15:03 | Discharge Summary ---
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 Notified:: awaiting call back 11/30/17 18:29 Speech Therapy Evaluation and Treat [CONS] Urgent Reason For Exam: S/P extubation 12/01/17 11:37 Physical Therapy Evaluation and Treat [CONS] Routine Comment: Reason For Exam: debility 12/02/17 12:08 Consult to Wound/ET Nurse [CONS] Routine Reason For Exam: wound eval, left elbow Primary care physician: MURALI GIL Hospitalization Reason for admission: Altered mental status, drug over dose Condition: Stable Pertinent studies: CXR normal CT head no acute intracranial findings Disposition: IN-01 TO HOME OR SELFCARE Time spent for discharge: 32 minutes - Discharge Diagnoses (1) Acute hypercapnic respiratory failure Status: Acute (2) Altered mental status Status: Acute Qualifiers: Altered mental status type: somnolence Qualified Code(s): R40.0 - Somnolence (3) Drug overdose Status: Acute (4) Heroin overdose Status: Acute Qualifiers: Encounter type: initial encounter (5) Respiratory failure Status: Acute Qualifiers: Chronicity: unspecified Respiratory failure complication: unspecified whether with hypoxia or hypercapnia Qualified Code(s): J96.90 - Respiratory failure, unspecified, unspecified whether with hypoxia or hypercapnia (6) SIRS (systemic inflammatory response syndrome) Status: Acute Core Measure Documentation - Palliative Care Palliative Care/ Comfort Measures: Not Applicable - Core Measures Any of the following diagnoses?: none Exam - Physical Exam Narrative exam: patient is not in cardiopulmonary distress The patient appeared well nourished and normally developed. Vital signs as documented. Head exam is unremarkable. No scleral icterus . Neck is without jugular venous distension, thyromegaly, or carotid bruits. Lungs are clear to auscultation. Cardiac exam reveals regular rate and Rhythm. Abdominal exam reveals normal bowel sounds, no masses, no organomegaly and no aortic enlargement. Extremities are nonedematous and both femoral and pedal pulses are normal. 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 - Constitutional Vitals: Temp Pulse Resp BP Pulse Ox 98.5 F 84 18 122/95 97 12/04/17 11:47 12/04/17 13:38 12/04/17 13:38 12/04/17 11:47 12/04/17 11:47 Plan Activity: no restrictions Weight Bearing Status: Full Weight Bearing Diet: regular Follow up with: [facility] [Outside] - 7 Days PRIMARY CARE, [Referring] - 3-5 Days Prescriptions: Mirtazapine [Remeron] 15 mg PO QHS #30 tablet hydrOXYzine PAMOATE [Vistaril] 25 mg PO BID #60 capsule Potassium Chloride [K-Dur] 20 meq PO DAILY #15 tablet
[2017-12-04] MEDS ORDERED: MAGNESIUM SULFATE 2GM/50ML 2 GM/50 ML BAG IV ONE (16:12)
[2017-12-04] MEDS ORDERED: MAGNESIUM SULFATE 2 GM in NACL 0.9% 50 ML IV ONE (18:00)
[2017-12-04] MEDS ORDERED: PEPCID PO SCH (22:00)
== END 2017-12-04 18:00 | disposition home or self-care (01) | DRG 917 ==
LOC: ED 22:52 → CC1 11-30 02:27 → 3A 12-01 20:24
PROVIDERS: ADMIT Internal Medicine; ATTEND Internal Medicine
PROC: 5A1935Z Respiratory Ventilation, Less than 24 Consecutive Hours (ICD-10-PCS; 2017-11-29)
PROC: 0BH17EZ Insertion of Endotracheal Airway into Trachea, Via Natural or Artificial Opening (ICD-10-PCS; 2017-11-29)
PROC: 4A033R1 Measurement of Arterial Saturation, Peripheral, Percutaneous Approach (ICD-10-PCS; principal; 2017-11-30)
DX: T40.1X1A Poisoning by heroin, accidental (unintentional), initial encounter (principal); J96.02 Acute respiratory failure with hypercapnia; G92 Toxic encephalopathy; R65.10 Systemic inflammatory response syndrome (SIRS) of non-infectious origin without acute organ dysfunction; N39.0 Urinary tract infection, site not specified; R41.82 Altered mental status, unspecified; T50.991A Poisoning by other drugs, medicaments and biological substances, accidental (unintentional), initial encounter; F32.9 Major depressive disorder, single episode, unspecified; F41.9 Anxiety disorder, unspecified; E87.6 Hypokalemia; R73.9 Hyperglycemia, unspecified; F17.200 Nicotine dependence, unspecified, uncomplicated; Z88.5 Allergy status to narcotic agent; Y92.89 Other specified places as the place of occurrence of the external cause
CPT/HCPCS: 36415; 36600; 70450; 71045; 72125; 80048; 80053; 80307; 80320; 81001; 82140; 82550; 82803; 82962; 83735; 84132; 84484; 85014; 85018; 85025; 85730; 86706; 86803; 86850; 86900; 86901; 87040; 87070; 87086; 87205; 94002; 94003; 94640; 94760; G0480; J0295; J0360; J1630; J1644; J1956; J2001; J2060; J2270; J2405; J3010; J3475; J7030; Q0177